=== PATIENT | female | born 1950 | race Caucasian/White ===

== ENCOUNTER 2020-09-19 07:39 | Outpatient (CLI) | payer MEDICARE, SELFPAY ==
--- NOTE | ~2020-09-19 | MM_ITS ---
EXAMINATION: MM screening [facility] BI w audra HISTORY: Screening mammogram TECHNIQUE: Craniocaudal and mediolateral oblique 3-D tomosynthesis images were obtained and synthetic 2-D images were generated. CAD analysis was submitted and interpreted. COMPARISON: 09/09/2019 bilateral digital screening mammogram 02/19/2019 diagnostic left digital mammogram and limited left breast ultrasound 08/18/2018 diagnostic bilateral digital mammogram and limited left breast ultrasound 08/15 2017 bilateral digital screening mammogram BREAST PARENCHYMAL COMPOSITION: ere is no evidence of suspicious mass, calcification, or architectura l distortion to suggest malignancy in either breast. There has been no suspicious interval change. IMPRESSION: 1. No mammographic evidence of malignancy. 2. Recommend routine screening mammography in one year. BI-RADS Category 1: Negative Reviewed, dictated and finalized at location A.
== END 2020-09-19 07:40 | disposition home or self-care (01) ==
LOC: ANHIMG 07:44
PROVIDERS: PCP Nurse Practitioner Adult Health; Visit Provider Obstetrics & Gynecology Gynecology
DX: Z12.31 Encounter for screening mammogram for malignant neoplasm of breast (principal)
CPT/HCPCS: 77063; 77067

== ENCOUNTER 2020-10-27 07:05 | Outpatient (NON) | payer MEDICARE, SELFPAY ==
[2020-10-27 18:53] LABS: SARS-CoV-2 RNA PCR Negative
== END 2020-10-27 07:06 ==
LOC: ANHCOVIDDT 07:06
PROVIDERS: Visit Provider Family Medicine
DX: Z20.828 Contact with and (suspected) exposure to other viral communicable diseases (principal); J06.9 Acute upper respiratory infection, unspecified
CPT/HCPCS: 87635; C9803; U0003

== ENCOUNTER 2021-02-02 07:59 | Outpatient (CLI) | payer MEDICARE, SELFPAY | END 2021-02-02 08:00 | LOC: ANHCOVIDVC 08:00 | PROVIDERS: PCP Family Medicine | DX: Z23 Encounter for immunization (principal) | CPT/HCPCS: 0001A; 91300 ==

== ENCOUNTER 2021-02-23 08:00 | Outpatient (CLI) | payer MEDICARE, SELFPAY | END 2021-02-23 08:01 | disposition home or self-care (01) | LOC: ANHCOVIDVC 08:00 | PROVIDERS: PCP Family Medicine | DX: Z23 Encounter for immunization (principal) | CPT/HCPCS: 0002A; 91300 ==

== ENCOUNTER 2021-11-03 10:07 | Outpatient (CLI) | payer MEDICARE, SELFPAY ==
--- NOTE | ~2021-11-03 | MM_ITS ---
EXAMINATION: MM screening [facility] BI w audra HISTORY: Screening mammogram TECHNIQUE: Craniocaudal and mediolateral oblique 3-D tomosynthesis images were obtained and synthetic 2-D images were generated. CAD analysis was submitted and interpreted. COMPARISON: 09/19/2020, 09/17/2019, 08/18/2018 BREAST PARENCHYMAL COMPOSITION: There are scattered areas of fibroglandular density. FINDINGS: There is no evidence of suspicious mass, calcification, or architectural distortion to sugg est malignancy in either breast. There has been no suspicious interval change. IMPRESSION: 1. No mammographic evidence of malignancy. 2. Recommend routine screening mammography in one year. BI-RADS Category 1: Negative Reviewed, dictated and finalized at location A. 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
--- NOTE | ~2021-11-03 | DEXA_ITS ---
Bone Density Report Name: MAYO DICKERSON Age: 71 Sex: Female Ethnicity: White Date of : 1950 Indication: osteopenia; postmenopausal Referring Provider: JESUS ANTONIO Study: Bone densitometry was performed. Exam Date: November 03, 2021 Accession number: [id number] Bone Density: Region BMD T-score Z-score Classification AP Spine (L1-L4) 0.947 -0.9 1.1 Normal Femoral Neck (Left) 0.635 -1.9 -0.2 Osteopenia Total Hip (Left) 0.785 -1.3 0.2 Osteopenia Total Hip Bilateral Avg 0.785 -1.3 0.2 Osteopenia Femoral Neck (Right) 0.624 -2.0 -0.3 Osteopenia Total Hip (Right) 0.783 -1.3 0.2 Osteopenia World Health Organization criteria for BMD impression classify patients as: Normal (T-score at or above -1.0), Osteopenia (T-score between -1.0 and -2.5), or Osteoporosis (T-score at or below -2.5). 10-year Fracture Risk(1): Major Osteoporotic Fracture 12% Hip Fracture 2.2% Reported Risk Factors: [place] (), Neck BMD=0.624, BMI=26.3 (1) FRAX(R) Version 3.08. Fracture probability calculated for an untreated patient. Fracture probability may be lower if the patient has received treatment. Previous Exams: Region Exam Age BMD T-score BMD Change BMD Change Date g/cm2 vs Baseline vs Previous AP Spine(L1-L4) 11/03/2021 71 0.947 -0.9 -0.054(-5.4%)# -0.076(-7.4%)* 08/13/2016 65 1.023 -0.2 0.023(2.3%)# 0.026(2.6%)# 07/28/2013 62 0.997 -0.5 -0.003(-0.3%)# -0.039(-3.8%)# 08/24/2010 59 1.037 -0.1 0.036(3.6%)* 0.036(3.6%)* 08/01/2008 57 1.001 -0.4 Total Hip(Left) 11/03/2021 71 0.785 -1.3 -0.065(-7.7%)# -0.012(-1.5%) 09/17/2019 69 0.797 -1.2 -0.053(-6.3%)# -0.021(-2.5%) 08/13/2016 65 0.817 -1.0 -0.033(-3.9%)# -0.024(-2.8%)# 07/28/2013 62 0.841 -0.8 -0.009(-1.1%)# 0.014(1.7%)# 08/24/2010 59 0.827 -0.9 -0.023(-2.7%) -0.023(-2.7%) 08/01/2008 57 0.850 -0.8 Total Hip(Right) 11/03/2021 71 0.783 -1.3 -0.101(-11.4%) -0.022(-2.8%) 09/17/2019 69 0.806 -1.1 -0.079(-8.9%)# -0.026(-3.1%) 08/13/2016 65 0.832 -0.9 -0.053(-6.0%)# -0.015(-1.8%)# 07/28/2013 62 0.846 -0.8 -0.038(-4.3%)# -0.087(-9.3%)# 08/24/2010 59 0.933 -0.1 0.049(5.5%)* 0.049(5.5%)* 08/01/2008 57 0.885 -0.5 *Denotes significance at 95% confidence level, LSC for AP Spine = 0.022 g/cm2, LSC for Total Hip = 0.027 g/cm2 Clinical Information Provided by Patient: Has used the following medications: Calcium Patient maximum height was 59
== END 2021-11-03 10:08 | disposition home or self-care (01) ==
LOC: ANHIMG 10:11
PROVIDERS: PCP Family Medicine; Visit Provider Obstetrics & Gynecology Gynecology
DX: Z12.31 Encounter for screening mammogram for malignant neoplasm of breast (principal); Z78.0 Asymptomatic menopausal state; M85.852 Other specified disorders of bone density and structure, left thigh; M85.851 Other specified disorders of bone density and structure, right thigh
CPT/HCPCS: 77063; 77067; 77080

== ENCOUNTER → 2022-12-30 15:35 | Outpatient (CLI) | payer MEDICARE, SELFPAY ==
--- NOTE | ~2022-12-30 | MM_ITS ---
EXAMINATION: MM screening [facility] BI w audra HISTORY: Screening mammogram TECHNIQUE: Craniocaudal and mediolateral oblique 3-D tomosynthesis images were obtained and synthetic 2-D images were generated. CAD analysis was submitted and interpreted. COMPARISON: 11/03/2021, 09/19/2020, 09/17/2019 bilateral screening mammogram examinations BREAST PARENCHYMAL COMPOSITION: There are scattered areas of fibroglandular density. FINDINGS: There is no evidence of suspicious mass, calcification, or architectural distortion to sugg est malignancy in either breast. There has been no suspicious interval change. IMPRESSION: 1. No mammographic evidence of malignancy. 2. Recommend routine screening mammography in one year. BI-RADS Category 1: Negative Reviewed, dictated and finalized at location A. 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
== END ==
PROVIDERS: PCP Obstetrics & Gynecology Gynecology; Visit Provider Obstetrics & Gynecology Gynecology
DX: Z12.31 Encounter for screening mammogram for malignant neoplasm of breast (principal)
CPT/HCPCS: 77063; 77067

== ENCOUNTER 2023-06-24 10:37 | Emergency (ER) | payer MEDICARE, SELFPAY ==
[2023-06-24 10:49] VITALS: BP 168/92; PULSE 78; RESP 18; TEMP 36.6; O2SAT 97
--- NOTE | 2023-06-24 11:46 | ED.ALLEREA ---
HPI - Allergic Reaction General Chief complaint: Allergic Reaction Stated complaint: Throat swelling Time Seen by Provider: 06/24/23 10:46 History of Present Illness HPI narrative: 72-year-old female present emergency department for evaluation of a suspected allergic reaction. Patient states she does have history of allergic reaction to celery and for peanuts. Patient states she has had pickles previously without any issues. This morning the patient had a apical that was made by a neighbor. Patient states afterward she began having some swelling at the back of her tongue. Patient did take 3 Benadryl at home but she was home alone and became concerned. Upon arrival to the ED patient states she does feel that her symptoms are improving. Related Data Home Medications Medication Instructions Recorded Confirmed ergocalciferol (vitamin D2) 1,250 1,250 mcg PO WEEKLY 02/09/23 02/10/23 mcg (50,000 unit) capsule Allergies Allergy/AdvReac Type Severity Reaction Status Date / Time celery Allergy Unknown Hives Verified 06/24/23 10:47 peanut Allergy Unknown THROAT Verified 06/24/23 10:47 SWELLING CLAMS Allergy Unknown Hives Uncoded 02/09/23 13:05 Review of Systems Review of Systems: All systems reviewed & are unremarkable except as noted in HPI and below PMFSH Past Medical History Medical History (Updated 06/24/23 @ 12:19 by aTvon Fernandes MD) Allergic rhinitis Generalized anxiety disorder GERD (gastroesophageal reflux disease) Heart murmur Hyperlipidemia Insomnia Osteopenia Surgical History Surgical History (Updated 02/10/23 @ 06:28 by YEISON Stover) History of Mohs micrographic surgery for skin cancer 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, left mid cheek History of tubal ligation Social History Social History (Updated 02/09/23 @ 13:12 by Cathy Salguero MA) Smoking status: Former smoker Alcohol intake: current Alcohol use details: occasionally Substance use: never Substance use type: does not use Lack of Transportation: No Lack of Food: Never True Current Housing: I Have Housing Concerned About Future Housing: No Difficulty Paying Gas/Electric Bills: No Difficulty Paying for Meds: No Currently Unemployed: YES Education: Trade/Vocational Certificate Difficulty w/ Childcare or Family Care: No Living arrangements: with family Occupation/Education: retired Gender identity (if verbalized by the patient): Female Sexual Orientation (if Verbalized by the Patient): Straight or Heterosexual Exam Narrative: APPEARANCE: Well appearing, no pain, no distress, well-nourished. HEAD: normocephalic, atraumatic. EYES: PERRLA/EOMI, conjunctivae clear. NOSE: Normal no drainage EARS:TMS clear with good light reflex. THROAT: Pharynx clear, no exudate. NECK: Supple. No adenopathy, no masses. RESPIRATORY: Airway patent, respirations nonlabored. Clear to auscultation bilaterally, no rales, rhonchi, wheezing. CARDIOVASCULAR: Regular rate and rhythm without murmurs rubs or gallops. ABDOMINAL: Soft, nontender, nondistended, normal bowel sounds MUSCULOSKELETAL: Moves all extremities. Strength/ROM intact, No edema, No calf tenderness. NEURO: Alert. Cranial nerves II through XII intact. Grossly intact SKIN: Warm, dry. Normal Color Course Course Emergency Course: 72-year-old female presented to ED for evaluation of allergic reaction. Patient states her symptoms feel improved. Patient denies any shortness of breath does denies any difficulty breathing or swallowing. Patient had no stridor on exam and appears to be in no distress. Patient prefers not to do steroids at this time. Because the symptoms improved with Benadryl patient will be observed and will be advised to take Benadryl as needed as outpatient. On reevaluation patient continues to have no complaints. Patient was encouraged of close follow-up with her primary care physici
== END 2023-06-24 12:42 | disposition home or self-care (01) ==
PROVIDERS: Emergency Provider Emergency Medicine; PCP Family Medicine
DX: T78.40XA Allergy, unspecified, initial encounter (principal); E78.5 Hyperlipidemia, unspecified; K21.9 Gastro-esophageal reflux disease without esophagitis; M85.80 Other specified disorders of bone density and structure, unspecified site; Z87.891 Personal history of nicotine dependence
CPT/HCPCS: 99281

== ENCOUNTER 2023-11-23 14:49 | Outpatient (CLI) | payer MEDICARE, SELFPAY ==
--- NOTE | ~2023-11-23 | DEXA_ITS ---
Bone Density Report Name: MAYO DICKERSON Age: 73 Sex: Female Ethnicity: White Date of : 1950 Indication: osteopenia; height loss; postmenopausal Referring Provider: JESUS ANTONIO Study: Bone densitometry was performed. Exam Date: November 23, 2023 Accession number: [id number] Bone Density: Region BMD T-score Z-score Classification AP Spine(L1-L4) 0.941 -1.0 1.2 Normal Femoral Neck (Left) 0.562 -2.6 -0.7 Osteoporosis Total Hip (Left) 0.743 -1.6 -0.1 Osteopenia Femoral Neck (Right) 0.582 -2.4 -0.5 Osteopenia Total Hip (Right) 0.778 -1.3 0.2 Osteopenia Total Hip Mean 0.760 -1.5 0.1 Osteopenia World Health Organization criteria for BMD impression classify patients as: Normal (T-score at or above -1.0), Osteopenia (T-score between -1.0 and -2.5), or Osteoporosis (T-score at or below -2.5). 10-year Fracture Risk: FRAX not reported because: Some T-score for Spine Total or Hip Total or Femoral Neck at or below -2.5 Previous Exams: Region Exam Age BMD T-score BMD Change BMD Change Date g/cm2 vs Baseline vs Previous AP Spine (L1-L4) 11/23/2023 73 0.941 -1.0 -0.057 (-5.7%) -0.006 (-0.7%) 11/03/2021 71 0.947 -0.9 -0.050 (-5.1%) -0.076 (-7.4%) 08/13/2016 65 1.023 -0.2 0.026 (2.6%)# 0.026 (2.6%)# 07/28/2013 62 0.997 -0.5 Total Hip(Left) 11/23/2023 73 0.743 -1.6 -0.098 (-11.7% -0.042 (-5.4%) 11/03/2021 71 0.785 -1.3 -0.056 (-6.7%) -0.012 (-1.5%) 09/17/2019 69 0.797 -1.2 -0.044 (-5.3%) -0.021 (-2.5%) 08/13/2016 65 0.817 -1.0 -0.024 (-2.8%) -0.024 (-2.8%) 07/28/2013 62 0.841 -0.8 Total Hip(Right) 11/23/2023 73 0.778 -1.3 -0.068 (-8.0%) -0.005 (-0.7%) 11/03/2021 71 0.783 -1.3 -0.063 (-7.4%) -0.022 (-2.8%) 09/17/2019 69 0.806 -1.1 -0.041 (-4.8%) -0.026 (-3.1%) 08/13/2016 65 0.832 -0.9 -0.015 (-1.8%) -0.015 (-1.8%) 07/28/2013 62 0.846 -0.8 *Denotes significance at 95% confidence level, LSC for AP Spine = 0.022 g/cm2, LSC for Total Hip = 0.027 g/cm2 # Denotes dissimilar scan types or analysis methods Clinical Information Provided by Patient: Has used the following medications: Vitamin D, Calcium Patient maximum height was 59.5 Menopause Age: 54 Onset of menses at age 15 Number of children 2 Impression: The patient has osteoporosis, based on the Left Femoral Neck T-score. The BMD for the Total Hip(Left) decreased, changing by -5.4% since the last DXA
== END 2023-11-23 14:50 | disposition home or self-care (01) ==
LOC: ANHIMG 14:53
PROVIDERS: PCP Family Medicine; Visit Provider Obstetrics & Gynecology Gynecology
DX: M81.0 Age-related osteoporosis without current pathological fracture (principal); Z78.0 Asymptomatic menopausal state
CPT/HCPCS: 77080

== ENCOUNTER 2023-12-30 13:47 | Outpatient (CLI) | payer MEDICARE, SELFPAY ==
--- NOTE | ~2023-12-30 | MM_ITS ---
EXAMINATION: MM screening [facility] BI w audra HISTORY: Screening mammogram TECHNIQUE: Craniocaudal and mediolateral oblique 3-D tomosynthesis images were obtained and synthetic 2-D images were generated. CAD analysis was submitted and interpreted. COMPARISON: December 30, 2022, November 03, 2021 bilateral screening mammogram examinations BREAST PARENCHYMAL COMPOSITION: There are scattered areas of fibroglandular density. FINDINGS: There is no evidence of suspicious mass, calcification, or architectural distortion to sugg est malignancy in either breast. There has been no suspicious interval change. IMPRESSION: 1. No mammographic evidence of malignancy. 2. Recommend routine screening mammography in one year. BI-RADS Category 1: Negative Reviewed, dictated and finalized at location A. 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
== END 2023-12-30 13:48 | disposition home or self-care (01) ==
LOC: ANHIMG 13:51
PROVIDERS: PCP Family Medicine; Visit Provider Obstetrics & Gynecology Gynecology
DX: Z12.31 Encounter for screening mammogram for malignant neoplasm of breast (principal)
CPT/HCPCS: 77063; 77067

== ENCOUNTER 2024-05-14 09:36 | Emergency (ER) | payer MEDICARE, SELFPAY ==
[2024-05-14 09:54] VITALS: BP 146/78; PULSE 88; RESP 16; TEMP 36.8; O2SAT 99
--- NOTE | 2024-05-14 09:54 | ED.SKABFB ---
HPI - Skin/Abscess/Foreign Bdy General Chief complaint: Skin/Abscess/Foreign Body Stated complaint: rash Time Seen by Provider: 05/14/24 09:54 Source: patient, RN notes reviewed and old records reviewed Mode of arrival: ambulatory Limitations: no limitations History of Present Illness HPI narrative: 73-year-old female to [facility] for complaint of rash to bilateral sides, right wrist and back for 1 week. Patient states that she has noticed some redness and irritation to right temporal area the past 3 days. Patient has attempted to treat at home with [id number] creams and covering the areas on her sides with gauze overnight. Patient endorses that rash is continuing to spread and c/o itching. Patient states that she has been in her garden and had been working in her garden prior to rash appearing. Patient denies any recent illness, fever, rash, cough, shortness of breath, headache, body aches, pain, visual changes. Patient does state that her right eye has been irritated and watering . Respirations even and nonlabored. Patient in no acute distress. Related Data Home Medications Medication Instructions Recorded Confirmed ergocalciferol (vitamin D2) 1,250 1,250 mcg PO WEEKLY 02/09/23 05/14/24 mcg (50,000 unit) capsule Allergies Allergy/AdvReac Type Severity Reaction Status Date / Time peanut Allergy Severe THROAT Verified 05/14/24 09:44 SWELLING celery AdvReac Mild Hives Verified 05/14/24 09:44 CLAMS AdvReac Mild Hives Uncoded 05/14/24 09:44 Review of Systems Review of Systems: All systems reviewed & are unremarkable except as noted in HPI and below Constitutional: Constitutional: Reports as per HPI, Denies fatigue, Denies fever(s) and Denies headache(s) Eyes: Eyes: Reports as per HPI, Denies change in vision, Reports eye discharge ( right), Reports irritation ( right) and Denies photophobia ENT: Reports system reviewed and no additional complaints, except as documented Cardiovascular: Cardiovascular: Reports no additional cardiovascular complaints, Denies chest pain and Denies dyspnea Respiratory: Respiratory: Reports no additional respiratory complaints, Denies cough and Denies dyspnea Musculoskeletal: Musculoskeletal: Reports no additional musculoskeletal complaints Integumentary/Breasts: Skin/Breast: Reports as per HPI and Reports rash Comments: right lower lateral trunk; left lower lateral trunk; right volar wrist; right face at temporal area; left middle back Neurologic: Reports system reviewed and no additional complaints, except as documented Psychiatric: Psychiatric: Reports no additional psychiatric complaints PMFSH Past Medical History Medical History Allergic rhinitis Generalized anxiety disorder GERD (gastroesophageal reflux disease) Hyperlipidemia Insomnia Osteopenia Surgical History Surgical History History of Mohs micrographic surgery for skin cancer 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, left mid cheek History of tubal ligation Family History Family History Mother Heart disease Diabetes mellitus Social History Social History Smoking status: Former smoker Alcohol intake: current Alcohol use details: occasionally Substance use: never Substance use type: does not use Do You Feel Safe in your Home?: Yes Lack of Transportation: No Lack of Food: Never True Current Housing: I Have Housing Concerned About Future Housing: No Difficulty Paying Gas/Electric Bills: No Difficulty Paying for Meds: No Currently Unemployed: YES Education: Trade/Vocational Certificate Difficulty w/ Childcare or Family Care: No Living arrangements: with family Occupation/Edu
== END 2024-05-14 10:30 | disposition home or self-care (01) ==
PROVIDERS: Emergency Provider Nurse Practitioner Family; PCP Family Medicine
DX: L25.9 Unspecified contact dermatitis, unspecified cause (principal); H10.9 Unspecified conjunctivitis; Z87.891 Personal history of nicotine dependence; K21.9 Gastro-esophageal reflux disease without esophagitis; E78.5 Hyperlipidemia, unspecified; M85.80 Other specified disorders of bone density and structure, unspecified site
CPT/HCPCS: 99213; G0463

== ENCOUNTER 2024-08-01 18:10 | Emergency (ER) | payer MEDICARE, SELFPAY ==
--- NOTE | ~2024-08-01 | XR_ITS ---
XR chest 2V Ordering provider: Chano Ayala MD History: 73 years Female with . chest pain . Comparison: January 09, 2013 FINDINGS: MEDIASTINUM: The cardiac silhouette is not enlarged. LUNGS: No infiltrates, effusions or pneumothorax. OTHER: No free air under the diaphragm. Degenerative changes of the spine. IMPRESSION: No acute cardiopulmonary pathology. Reviewed, dictated and finalized at location A.
[2024-08-01 18:12] VITALS: BP 160/64; PULSE 81; RESP 17; TEMP 36.8; O2SAT 100
--- NOTE | 2024-08-01 18:12 | ECG_ITS ---
Test Date: 2024-08-01 18:16:24 Measurements Intervals [place] Rate: 75 P: 48 MT: 160 QRS: -23 QRSD: 91 T: 16 QT: 362 QTc: 406 Interpretive Statements SINUS RHYTHM POSSIBLE LEFT ATRIAL ENLARGEMENT VOLTAGE CRITERIA FOR LVH BORDERLINE R WAVE PROGRESSION, ANTERIOR LEADS BASELINE ARTIFACT- I, III, AVR, AVL, AVF BORDERLINE ECG No previous ECG available for comparison Electronically Signed On 08-01-2024 19:21:00 CDT by Anthony Levy D.O.
[2024-08-01 18:34] LABS: Basophils Absolute Auto 0.1 K/mm3 (0.0-0.1); Basophils Percent Auto 0.9 % (0.2-1.2); Eosinophils Absolute Auto 0.4 K/mm3 (0-0.3); Eosinophils Percent Auto 4.3 % (0-4.4); Hematocrit 39.6 % (37.0-47.0); Hemoglobin 13.6 g/dL (12.0-15.0); Immature Granulocyte Absolute 0.01 K/mm3 (0.00-0.031); Immature Granulocyte Percent A 0.1 % (0-0.5); Lymphocytes Absolute Auto 2.79 K/mm3 (0.9-3.2); Lymphocytes Percent Auto 32.7 % (18.3-44.2); Mean Corpuscular HGB Conc 34.3 g/dl (32-36); Mean Corpuscular Hemoglobin 30.3 pg (26-34); Mean Corpuscular Volume 88.2 fl (80-100); Mean Platelet Volume 8.9 fl (7.4-10.4); Monocytes Absolute Auto 0.7 K/mm3 (0.1-0.6); Monocytes Percent Auto 8.3 % (2.6-8.5); Neutrophils Absolute Auto 4.6 K/mm3 (1.3-6.7); Neutrophils Percent Auto 53.7 % (45.5-73.1); Platelet Count Result 341 k/mm3 (150-375); Red Blood Count 4.49 M/mm3 (4.2-5.4); Red Cell Distribution Width 12.6 % (11.5-14.5); White Blood Count 8.5 K/mm3 (4.5-10.0)
[2024-08-01 18:47] LABS: Alanine Aminotransferase 20 U/L (6-35); Albumin Level 4.6 g/dL (3.5-5.1); Alkaline Phosphatase 65 U/L (38-126); Anion Gap 10 mmol/L (4-12); Aspartate Amino Transferase 32 U/L (14-36); Bilirubin,Total 0.4 mg/dL (0.2-1.3); Blood Urea Nitrogen 18 mg/dL (7-17); Calcium 9.4 mg/dL (8.4-10.2); Carbon Dioxide 26 mmol/L (22-30); Chloride 102 mmol/L (98-107); Estimated CRCL calculation 40 ml/min; Estimated Glomerular Filt Rate > 60; Glucose 102 mg/dL (65-110); INR 0.8; Lipase 86 U/L (23-300); Potassium 4.1 mmol/L (3.4-5.0); Sodium 138 mmol/L (137-145)
[2024-08-01 18:48] LABS: Partial Thromboplastin Time 27.4 Seconds (22.3-36.8)
[2024-08-01 18:57] LABS: Troponin I < 0.012 ng/mL (0.000-0.034)
[2024-08-01 19:43] VITALS: PULSE 69
[2024-08-01 19:44] VITALS: O2SAT 98
[2024-08-01 21:00] VITALS: BP 138/74; PULSE 66; RESP 15; O2SAT 98
--- NOTE | 2024-08-01 21:08 | ED.GENADULT ---
HPI - General Adult General Chief complaint: Chest Pain Stated complaint: chest pain Time Seen by Provider: 08/01/24 19:45 History of Present Illness HPI narrative: Patient is a 73-year-old female who presents emergency department with chief complaint of intermittent discomfort on her left chest and upper back for the last 3 days the patient reports that she has had multiple episodes of uncomfortable feeling the patient does report that she has had a little bit of a rash present on her back but does report that she has had shingles vaccine. Patient reports no prior history of cardiac disease reports that she has been little bit anxious slightly as she has an upcoming trip. Patient reports that she has had a stress test in the past was negative Related Data Home Medications Medication Instructions Recorded Confirmed ergocalciferol (vitamin D2) 1,250 1,250 mcg PO WEEKLY 02/09/23 05/14/24 mcg (50,000 unit) capsule Allergies Allergy/AdvReac Type Severity Reaction Status Date / Time peanut Allergy Severe THROAT Verified 05/14/24 09:44 SWELLING celery AdvReac Mild Hives Verified 05/14/24 09:44 CLAMS AdvReac Mild Hives Uncoded 05/14/24 09:44 Review of Systems Review of Systems: A 10 system review of systems was completed on the patient and is negative except for what is stated in the HPI. Nursing and ancillary documentation was reviewed. 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, left mid cheek History of tubal ligation Family History Family History Mother Heart disease Diabetes mellitus Social History Social History Smoking status: Former smoker Alcohol intake: current Alcohol use details: occasionally Substance use: never Substance use type: does not use Do You Feel Safe in your Home?: Yes Lack of Transportation: No Lack of Food: Never True Current Housing: I Have Housing Concerned About Future Housing: No Difficulty Paying Gas/Electric Bills: No Difficulty Paying for Meds: No Currently Unemployed: YES Education: Trade/Vocational Certificate Difficulty w/ Childcare or Family Care: No Living arrangements: with family Occupation/Education: retired Gender identity (if verbalized by the patient): Female Sexual Orientation (if Verbalized by the Patient): Straight or Heterosexual Exam Narrative: GENERAL: Well-appearing, well-nourished, and in no acute distress. HEAD: Normocephalic, atraumatic. EYES: PERRLA and EOMI. ENT: Nares clear, no rhinorrhea or epistaxis. Mucous membranes moist. NECK: Supple. CHEST: Clear to auscultation. No respiratory distress. HEART: Regular rate and rhythm. No murmur heard. Normal peripheral pulses. ABDOMEN: Soft, nontender, nondistended, normal active bowel sounds. EXTREMITIES: Normal range of motion. No edema. SKIN: Warm, dry, no rash. NEURO: No focal deficits. Alert and oriented x3. PSYCH: Normal mood and affect. Course Vital Signs Vital signs: Vital Signs Temperature 36.8 C 08/01/24 18:12 Pulse Rate 81 08/01/24 18:12 Respiratory Rate 17 08/01/24 18:12 Blood Pressure 160/64 H 08/01/24 18:12 Pulse Oximetry 100 08/01/24 18:12 Oxygen Delivery Room Air 08/01/24 18:12 Temperature 36.8 C 08/01/24 18:12 Pulse Rate 66 08/01/24 21:00 Respiratory Rate 15 08/01/24 21:00 Blood Pressure 138/74 08/01/24 21:00 Pulse Oximetry 98 08/01/24 21:00 Oxyg
--- NOTE | 2024-08-01 21:23 | ECG_ITS ---
Test Date: 2024-08-01 21:01:26 Measurements Intervals [place] Rate: 64 P: 50 IN: 167 QRS: -11 QRSD: 91 T: 28 QT: 400 QTc: 415 Interpretive Statements SINUS RHYTHM POSSIBLE LEFT ATRIAL ENLARGEMENT DELAYED PRECORDIAL R/S TRANSITION LEFT VENTRICULAR HYPERTROPHY BORDERLINE ECG Compared to ECG 08/01/2024 18:16:24 No significant changes Electronically Signed On 08-02-2024 05:34:34 CDT by Anthony Levy D.O.
[2024-08-01 22:01] LABS: Troponin I < 0.012 ng/mL (0.000-0.034)
== END 2024-08-01 22:34 | disposition home or self-care (01) ==
PROVIDERS: Emergency Medicine; Emergency Provider Emergency Medicine; PCP Family Medicine
DX: R07.89 Other chest pain (principal); F41.1 Generalized anxiety disorder; K21.9 Gastro-esophageal reflux disease without esophagitis; E78.5 Hyperlipidemia, unspecified; Z87.891 Personal history of nicotine dependence
CPT/HCPCS: 36415; 71046; 80053; 83690; 84484; 85025; 85610; 85730; 93005; 99284

== ENCOUNTER 2024-12-26 08:36 | Outpatient (CLI) | payer MEDICARE, SELFPAY ==
--- OUTSIDE RECORDS SUMMARY | 2024-12-26 08:44 | XMS_ITS | Continuity of Care Document ---
Author Organization [facility] Address [address] [place] [address] Phone Care Team Providers Care Digital Marketing Executive Name Role Phone Odell Nieto MD Unavailable Unavailable Allergies, Adverse Reactions, Alerts Substance Reaction Status Criticality cyclobenzaprine Active No Informati on Medications Medication Instructions Dosage Effective Dates (start - stop) Status Comments BENADRYL (unknown strength) Not Available - Active PREDNISONE (unknown strength) Not Available - Active NITROSTAT (unknown strength) Not Available - Active ALPRAZOLAM (unknown strength) Not Available - Active ASPIRIN (unknown strength) Not Available - Active VITAMIN D3 (unknown strength) Not Available - Active CALCIUM 500-VIT D3 (unknown strength) Not Available - Active MULTIVITAMINS (unknown strength) Not Available - Active ESTRADIOL (unknown strength) Not Available - Active MEDROXYPROGESTERONE ACETATE (unknown strength) Not Available - Active Procedures Procedure Date OFFICE/OUTPATIENT VISIT NEW Advance Directives Directive Yes / No Effective Date File Name No Information Encounters Encounter Description Practice Location Reason(s) For Visit Diagnoses Date Provider Providers Copied on Encounter OFFICE/OUTPAT IENT VISIT NEW [facility] , [address], [place], [address], [place] tel:[phone] [facility] knee pain (chief complaint) knee chondromalacia of patella [address]. [address] [place], [place], [id number] . tel:[phone] Referring Provider: Lynne Moses, [address], [place], [address] . tel:[phone] Family History Family Member Type Diagnosis Age At Onset Mother Problem (finding) Maternal history of rebecca betes mellitus Mother Problem (finding) Heart disease Payers Payer name Insurance type Covered libertarian ID Authorromaina adela(s) No Information Social History Type Description Quantity Date Captured Comments Alcohol Use Details Caffeine Use Details Unknown Tobacco Use Status Never smoked tobacco 2013 Smoking Status Never smoker Non-Smoking Tobacco Use Details : No Details Available : No Details Available Sex Female Vital Signs Date / Time: Height Weight BMI Pulse Rate Blood Pressure Temperature Respiratory Rate Body Surface Area Head Circumference Head Circ. Percentile Wt./John. Percentile BMI percentile Pulse Ox Inhaled Ox 1:42 PM 60.00 in 58.967 kg (130.00 lbs) 25.3 9 kg/m eter (2) 126/76 mm[Hg] Chief Complaint And Reason For Visit From encounter dated '11/11/2014 13:30'. R knee pain (chief complaint) Reason For Referral Reason For Referral No Information History Of Present Illness Encounter Date Complaint History Of Prese nt Illness R knee pain Functional Status Date Functional Assessmen t No Information Instructions Date Instruction Additional Infor mation No Information Assessments Type Assessment Date assessment knee chondromalacia of patella D Patient Care Teams Name Effective Dates (start - stop) Status Members No Information
== END 2024-12-26 08:37 | disposition home or self-care (01) ==
LOC: ANHAUDIO 08:37
PROVIDERS: PCP Family Medicine
DX: H90.3 Sensorineural hearing loss, bilateral (principal); H93.13 Tinnitus, bilateral; H74.8X3 Other specified disorders of middle ear and mastoid, bilateral
CPT/HCPCS: 92557; 92567

== ENCOUNTER 2025-01-21 13:53 | Outpatient (CLI) | payer MEDICARE, SELFPAY | END 2025-01-21 13:54 | disposition home or self-care (01) | LOC: ANHIMG 13:55 | PROVIDERS: PCP Family Medicine; Visit Provider Obstetrics & Gynecology Gynecology | DX: Z12.31 Encounter for screening mammogram for malignant neoplasm of breast (principal) | CPT/HCPCS: 77063; 77067 ==

== ENCOUNTER 2025-04-17 09:00 | Outpatient (RCR) | payer MEDICARE, SELFPAY | END 2025-04-17 23:59 | disposition home or self-care (01) | LOC: ANHAUDIO 09:00 | PROVIDERS: PCP Family Medicine; Visit Provider Family Medicine | DX: Z46.1 Encounter for fitting and adjustment of hearing aid (principal) | CPT/HCPCS: 99199; V5261 ==

== ENCOUNTER 2025-05-08 08:10 | Outpatient (CLI) | payer MEDICARE, SELFPAY ==
--- NOTE | ~2025-05-08 | XR_ITS ---
Lumbosacral Spine: AP, oblique, and lateral views Clinical History: Pain Findings: The normal lordotic curve is maintained. No acute fracture evident. There is 6 mm anterolis thesis of L4 over L5. There is 11 mm anterolisthesis of L5 over S1. There is severe facet arthropathy throughout the lumbar spine. There is mild degenerative disc changes in the lumbar spine. The sacroi liac joints are normally outlined. Impression: 6 mm anterolisthesis of L4 over L5. 11 mm anterolisthesis of L5 over S1. Severe facet arthropathy throughout the lumbar spine. Mild degenerative disc change. Reviewed, dictated and finalized at location . Impression: 6 mm anterolisthesis of L4 over L5. 11 mm anterolisthesis of L5 over S1. Severe facet arthropathy throughout the lumbar spine. Mild degenerative disc ch miguelito.
--- NOTE | ~2025-05-08 | XR_ITS ---
XR hip LT 2V w AP pelvis Ordering provider: Elinor Castillo PA-C History: . R10.32 - Left lower quadrant pain . Comparison: None. FINDINGS: BONES: No acute fracture or dislocation. HIP JOINT SPACES: Mild bilateral osteoarthritic changes. SACROILIAC JOINT SPACES/LUMBAR SPINE: The sacroiliac joint spaces are normal. Mild degenerative hernandez es of the visualized lower lumbar spine. PUBIC SYMPHYSIS: Pubic symphysitis. SOFT TISSUES: Normal. IMPRESSION: No acute osseous abnormality pelvis and left hip. Mild bilateral hip osteoarthritic changes. Reviewed, dictated and finalized at location A.
--- OUTSIDE RECORDS SUMMARY | 2025-05-08 08:17 | XMS_ITS | Continuity of Care Document ---
Author Organization [facility] Address [address] [place] [address] Phone Care Team Providers Care Contact Person Name Role Phone Odell Nieto MD Unavailable Unavailable Allergies, Adverse Reactions, Alerts Substance Reaction Status Criticality cyclobenzaprine Active No Informati on Medications Medication Instructions Dosage Effective Dates (start - stop) Status Comments MEDROXYPROGESTERONE ACETATE (unknown strength) Not Available - Active ESTRADIOL (unknown strength) Not Available - Active MULTIVITAMINS (unknown strength) Not Available - Active CALCIUM 500-VIT D3 (unknown strength) Not Available - Active VITAMIN D3 (unknown strength) Not Available - Active ASPIRIN (unknown strength) Not Available - Active ALPRAZOLAM (unknown strength) Not Available - Active NITROSTAT (unknown strength) Not Available - Active PREDNISONE (unknown strength) Not Available - Active BENADRYL (unknown strength) Not Available - Active Procedures Procedure Date OFFICE/OUTPATIENT VISIT NEW Advance Directives Directive Yes / No Effective Date File Name No Information Encounters Encounter Description Practice Location Reason(s) For Visit Diagnoses Date Provider Providers Copied on Encounter OFFICE/OUTPAT IENT VISIT NEW [facility] , [address] [facility] [address], [place], [address], [place] tel:[phone] [facility] knee pain (chief complaint) knee chondromalacia of patella [address]. [address] [place], [place], [id number] . tel:[phone] Referring Provider: Lynne Moses, [address], [place], [address] . tel:[phone] Family History Family Member Type Diagnosis Age At Onset Mother Problem (finding) Maternal history of rebecca betes mellitus Mother Problem (finding) Heart disease Payers Payer name Insurance type Covered constitution party ID Authorromaina adela(s) No Information Social History [...]
== END 2025-05-08 08:11 | disposition home or self-care (01) ==
PROVIDERS: PCP Family Medicine
DX: M43.16 Spondylolisthesis, lumbar region (principal); M43.17 Spondylolisthesis, lumbosacral region; M16.0 Bilateral primary osteoarthritis of hip
CPT/HCPCS: 72110; 73502

== ENCOUNTER 2025-09-14 17:34 | Observation (INO) | payer MEDICARE, SELFPAY ==
[2025-09-14] VITALS (10 sets, daily range): BP systolic 124–179; BP diastolic 61–76; PULSE 62–74; RESP 14–18; TEMP 36.4–36.7; O2SAT 96–99; BMI 24.5
--- NOTE | ~2025-09-14 | XR_ITS ---
EXAMINATION: XR chest 2V, 09/14/2025 17:53 CDT HISTORY: syncope COMPARISON: No comparisons available. Technique: 2 views obtained. Findings: The lungs are clear, no effusion. No pneumothorax. Heart is normal size. Mediastinal and hilar contours are within normal limits. Bony thorax no acute abnormality. Impression: No acute cardiopulmonary abnormality. Reviewed, dictated and finalized at location P. Impression: No acute cardiopulmonary abnormality.
--- NOTE | ~2025-09-14 | CT_ITS ---
EXAMINATION: CT brain wo selene, 09/14/2025 17:40 CDT HISTORY: syncope x2 COMPARISON: No comparisons available. Technique: Axial images obtained of the brain without contrast. One or more of the following dose reduction techniques were used: automated exposure control, adjustment of the mA and/or kV according to patient size, use of iterative reconstruction technique. Findings: No acute infarct or parenchymal hemorrhage. No abnormal mass or mass effect. No midline shift. No extra-axial fluid collections. No hydrocephalus. Mastoid air cells unremarkable. Sinuses and orbits unremarkable. No acute fracture. No significant facial or scalp soft tissue swelling evident. No radiopaque foreign body is seen. Impression: 1.No acute intracranial abnormality. Reviewed, dictated and finalized at location P. Impression: 1.No acute intracranial abnormality.
--- NOTE | ~2025-09-14 | MR_ITS ---
EXAMINATION: MR brain/brain stem wo/w con COMPARISON: CTA 09/14/2025 HISTORY: multiple syncopal episodes TECHNIQUE: Multiplanar multisequence images obtained of the brain without and with intravenous contrast, Prohance 17cc injected IV. FINDINGS: Cerebellar tonsils are normal in location. No abnormal signal in the clivus of the cervical spine. Pituitary does not appear enlarged No acute infarct or hemorrhage There are scattered areas of abnormal signal within the subcortical white matter which are too small to characterize, dominant focus left frontal subcortical white matter 6 x 6 mm Appropriate flow voids are maintained. No midline shift or mass effect. No extra-axial fluid collections. Appropriate flow voids are maintained Nonspecific right mastoid effusion. Left mastoid air cells, sinuses and orbits are unremarkable No abnormal enhancement is identified IMPRESSION: 1. Probable scattered areas of chronic periventricular ischemic change. Other demyelinating etiologies however are not excluded. Six-month follow-up is recommended to assess Reviewed, dictated and finalized at location P. IMPRESSION: 1. Probable scattered areas of chronic periventricular ischemic change. Other d emyelinating etiologies however are not excluded. Six-month follow-up is recomm ended to assess
--- NOTE | ~2025-09-14 | CT_ITS ---
EXAMINATION: CTA brain carotid, 09/14/2025 19:14 CDT HISTORY: syncope x2 COMPARISON: No comparisons available. TECHNIQUE: CTA scan with 3D Reconstructions of the brain and neck was performed with contrast Isovue 300, 92cc injected IV. One or more of the following dose reduction techniques were used: automated exposure control, adjustment of the mA and/or kV according to patient size, use of iterative reconstruction technique. Unless otherwise stated, incidental findings do not require dedicated follow up imaging FINDINGS: CTA brain: Visualized brain parenchyma and optic globes appear unremarkable. Basilar artery unremarkable. Right posterior cerebral artery unremarkable. Left posterior cerebral artery Unremarkable. The right petrous and cavernous ICA segments are unremarkable. The right M1, M2 segments and their branches are unremarkable. The right A1 and A2 segments are unremarkable. The left petrous and cavernous ICA segments are unremarkable. The left M1, M2 segments and their branches are unremarkable. The left A1 and A2 segments are unremarkable. CTA NECK: No asymmetry of the airway or thickening of the prevertebral space. Mild prominence of the uvula. Visualized parotid and submandibular glands unremarkable. Subcentimeter thyroid nodules. No lymphadenopathy. The lung apices demonstrate chronic changes. No sclerotic or lytic lesions identified. No significant sinusitis Cervical segments of the vertebral arteries are unremarkable Right CCA unremarkable. Right ICA unremarkable Left CCA unremarkable. Left ICA unremarkable IMPRESSION: 1. No critical stenosis, aneurysm or occlusion identified. Reviewed, dictated and finalized at location P.
--- NOTE | 2025-09-14 17:40 | ECG_ITS ---
Test Date: 2025-09-14 17:38:17 Measurements Intervals [place] Rate: 63 P: 50 NH: 173 QRS: -3 QRSD: 102 T: 31 QT: 413 QTc: 424 Interpretive Statements SINUS RHYTHM BASELINE ARTIFACT- I, II, III, AVR, AVL, AVF, V1-V5 NORMAL ECG Compared to ECG 08/01/2024 21:01:26 NO SIGNIFICANT CHANGE Electronically Signed On 09-14-2025 19:29:39 CDT by Anthony Levy D.O.
--- NOTE | 2025-09-14 17:49 | ED.SYNCOPE ---
HPI - Syncope General Chief Complaint: Syncope <Kailey Chamberlain PA-C - Last Filed: 09/14/25 22:04> Stated Complaint: syncope <Kailey Chamberlain PA-C - Last Filed: 09/14/25 22:04> Time Seen by Provider: 09/14/25 17:41 <Kailey Chamberlain PA-C - Last Filed: 09/14/25 22:04> Source: patient <ANNAMARIE Khan Last Filed: 09/14/25 22:04> Mode of arrival: EMS <ANNAMARIE Khan Last Filed: 09/14/25 22:04> Limitations: no limitations <Kailey Chamberlain PA-C - Last Filed: 09/14/25 22:04> History of Present Illness HPI narrative: Patient is a 75 y/o female who presents to the ED via EMS with report of syncope. Patient reports she was in her house today when she began feeling very nauseous. States she did not feel right. She sat down in his chair. Her then heard the patient fall to the ground. Saw her face down on the ground. reports she was unconscious for a couple of minutes. He then helped the patient to the living room couch. She was playing on her computer for a few minutes and began feeling nauseous again, asked her to go get her a bucket to vomit in. When he returned to the living room, patient was again unconscious, face forward on the couch. Patient does not remember passing out. She does not remember feeling dizzy or lightheaded. denied seizure-like activity, denied profound confusion afterwards. No previous history of seizures or syncope. Patient notes previous history of PFO and HTN, on metoprolol. Patient denies palpitations, chest pain, shortness of breath, focal numbness or weakness. <ANNAMARIE Khan Last Filed: 09/14/25 22:04> Related Data Home Medications: Home Medications ?Medication ?Instructions ?Recorded ?Confirmed ?Last Taken ?Type ergocalciferol (vitamin D2) 1,250 1,250 mcg PO WEEKLY 02/09/23 05/16/25 Unknown History mcg (50,000 unit) capsule vitamin E (dl, acetate) 450 mg 450 mg PO DAILY 09/17/24 05/16/25 Unknown History (1,000 unit) capsule trazodone 50 mg tablet 50 mg PO DAILY 12/13/24 05/16/25 Unknown History omeprazole magnesium 20 mg 20 mg PO DAILY 03/19/25 05/16/25 Unknown History capsule,delayed release naproxen sodium 220 mg capsule 220 mg PO Q12H PRN 05/06/25 05/16/25 Unknown History (Aleve) <Kailey Chamberlain PA-C - Last Filed: 09/14/25 22:04> Allergies/Adverse Reactions: Allergies Allergy/AdvReac Type Severity Reaction Status Date / Time peanut Allergy Severe THROAT Verified 05/16/25 11:09 SWELLING celery AdvReac Mild Hives Verified 05/16/25 11:09 sesame seed AdvReac Mild Rash Verified 05/16/25 11:09 CLAMS AdvReac Mild Hives Uncoded 05/16/25 11:09 <Kailey Chamberlain PA-C - Last Filed: 09/14/25 22:04> Review of Systems Review of Systems: All systems reviewed & are unremarkable except as noted in HPI. 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 Vitamin D deficiency Decreased hearing of both ears With audiologic evaluation to 03/2025 demonstrating normal hearing of the left ear and [id number] hearing loss in the right ear Temporomandibular joint disorder Age related osteoporosis DEXA scan 12/2023 Zoledronic acid yearly with 1st treatment 12/26/2023 Essential (primary) hypertension Hypercholesteremia GERD (gastroesophageal reflux disease) Allergic rhinitis Generalized anxiety disorder Insomnia <Kailey Chamberlain PA-C - Last Filed: 09/14/25 22:04> Surgical History Surgical History: Surgical History History of colonoscopy (2013) Diverticulosis with internal hemorrhoids History of Mohs micrographic surgery for skin cancer 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, left mid cheek History of tubal ligation <Kailey Chamberlain PA-C - Last Filed: 09/14/25 22:04> Family History Family History: Family History Mother Heart disease Diabetes mellitus <Kailey Chamberlain PA-C - Last Filed: 09/14/25 22:04> Social History Social History: Social History Social History: Code status: Full code Surrogate decision maker: Smoking status: Former smoker Alcohol intake: current Alcohol use details: occasionally Substance use: never Substance use type: does not use Do You Feel Safe in your Home?: Yes Lack of Transportation: No Lack of Food: Never True Current Housing: I Have Housing Concerned About Future Housing: No Difficulty Paying Gas/Electric Bills: No Difficulty Paying for Meds: No Currently Unemployed: YES Education: Trade/Vocational Certificate Difficulty w/ Childcare or Family Care: No Living arrangements: with family Occupation/Education: retired Gender identity (if verbalized by the patient): Female Sexual Orientation (if Verbalized by the Patient): Straight or Heterosexual <Kailey Chamberlain PA-C - Last Filed: 09/14/25 22:04> Exam Narrative: GENERAL: Elderly but well appearing, well-nourished, non-toxic, in no acute distress. HEAD: Normocephalic, atraumatic. EYES: PERRL/EOMI, conjunctivae clear bilaterally. No nystagmus. NECK: Supple. No meningeal signs. RESPIRATORY: Airway patent, respirations nonlabored. Clear to auscultation bilaterally, no rales, rhonchi, wheezing. CARDIOVASCULAR: Regular rate and rhythm without murmurs, rubs, or gallops. Peripheral pulses 2+ and equal bilaterally. MUSCULOSKELETAL: Moves all extremities. No gross deformities. SKIN: Warm, dry, normal color. No rashes. NEURO: A&O X3. Speech clear. Follows commands. CN II-XII intact. Sensation grossly intact. Steady gait. No ataxic movements. Strength 5/5 in upper and lower extremities bilaterally. Ijbo-vz-zigd and scboxz-me-rotb testing intact bilaterally. No pronator drift. Equal conference producer strength bilaterally. PSYCHIATRIC: Appropriate mood and affect. Normal interaction. 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 I performed all aspects of the MDM as documented. <Dom Kendall MD - Last Filed: 09/14/25 22:02> Vital Signs Vital signs: Vital Signs Temperature 97.6 F 09/14/25 17:34 Pulse Rate 69 09/14/25 17:34 Respiratory Rate 18 09/14/25 17:34 Blood Pressure 178/68 H 09/14/25 17:34 Pulse Oximetry 99 09/14/25 17:34 Oxygen Delivery Room Air 09/14/25 17:34 Temperature 97.6 F 09/14/25 17:34 Pulse Rate 72 09/14/25 21:14 Respiratory Rate 18 09/14/25 21:14 Blood Pressure 130/61 09/14/25 21:14 Pulse Oximetry 97 09/14/25 21:14 Oxygen Delivery Room Air 09/14/25 17:34 <Kailey Chamberlain PA-C - Last Filed: 09/14/25 22:04> Vital Signs Temperature 97.6 F 09/14/25 17:34 Pulse Rate 69 09/14/25 17:34 Respiratory Rate 18 09/14/25 17:34 Blood Pressure 178/68 H 09/14/25 17:34 Pulse Oximetry 99 09/14/25 17:34 Oxygen Delivery Room Air 09/14/25 17:34 Temperature 97.6 F 09/14/25 17:34 Pulse Rate 72 09/14/25 21:14 Respiratory Rate 18 09/14/25 21:14 Blood Pressure 130/61 09/14/25 21:14 Pulse Oximetry 97 09/14/25 21:14 Oxygen Delivery Room Air 09/14/25 17:34 <Dom Kendall MD - Last Filed: 09/14/25 22:02> MDM - Syncope MDM Narrative Medical decision making narrative: Patient presented to ED with syncope x2 this afternoon. Reported feeling nauseous prior to the episodes, but otherwise denied any prodromal symptoms including dizziness/lightheadedness. History of known PFO diagnosed several years ago, hypertension. Vital signs are stable upon arrival. No orthostatic hypotension. Patient neurologically intact. No acute focal deficits. EKG with sinus rhythm, no significant concerning ST changes. Troponin undetectable. Basic laboratory studies are otherwise fairly unremarkable. No leukocytosis or anemia. No electrolyte derangement. D-dimer within normal range. UA without signs of infection. CT brain and CTA of brain and carotids was unremarkable. Chest x-ray clear. At this time, unclear etiology of syncope. Concern for cardiac dysrhythmia versus central process such as CVA/TIA Discussed case with Dr. Mast, neurology, recommended MRI/EEG/ECHO, sz precautions Discussed case with Dr. Anand, hospitalist, accepted patient for admission. Patient and family are in agreement with plan. -- This visit was performed by both a physician and an APC. I performed all aspects of the MDM as documented. 09/14/25 10:02 pm CDT - Dom Kendall <Kailey Chamberlain PA-C - Last Filed: 09/14/25 22:04> Patient presented to ED with syncope x2 this afternoon. Reported feeling nauseous prior to the episodes, but otherwise denied any prodromal symptoms including dizziness/lightheadedness History of known PFO, hypertension. Vital signs are stable upon arrival. No orthostatic hypotension. Patient neurologically intact. No acute focal deficits. EKG with sinus rhythm, no significant concerning ST changes. Troponin undetectable. Basic laboratory studies are otherwise fairly unremarkable. No leukocytosis or anemia. No electrolyte derangement. D-dimer within normal range. UA without signs of infection. CT brain and CTA of brain and carotids was unremarkable. Chest x-ray clear. At this time, unclear etiology of syncope. Concern for cardiac dysrhythmia versus central process such as CVA/TIA Discussed case with Dr. Mast, neurology, recommended MRI/EEG/ECHO, sz precautions Discussed case with Dr. Anand, hospitalist, accepted patient for admission. This visit was performed by both a physician and an APC. I performed all aspects of the MDM as documented. <Dom Kendall MD - Last Filed: 09/14/25 22:02> Differential Diagnosis Differential diagnosis: Likely syncope due to orthostatic hypotension, vasovagal syncope, dehydration and other (Arrhythmia, cardiogenic syncope, electrolyte abnormality, CVA, seizure) <Dom Kendall MD - Last Filed: 09/14/25 22:02> Medical Records Attestation: I reviewed the patient's medical records. <Kailey Chamberlain PA-C - Last Filed: 09/14/25 22:04> Lab Data Attestation: I reviewed the patient's lab results. <Kailey Chamberlain PA-C - Last Filed: 09/14/25 22:04> Result diagrams: 09/14/25 17:45 09/14/25 17:45 <Kailey Chamberlain PA-C - Last Filed: 09/14/25 22:04> Labs: Lab Results 09/14/25 09/14/25 09/14/25 Range/Units 17:45 17:45 17:45 WBC 7.7 (4.5-10.0) K/mm3 RBC 4.30 (4.2-5.4) M/mm3 Hgb 12.6 (12.0-15.0) g/dL Hct 38.1 (37.0-47.0) % MCV 88.6 (80-100) fl MCH 29.3 (26-34) pg MCHC 33.1 (32-36) g/dl RDW 12.7 (11.5-14.5) % Plt Count 312 (150-375) k/mm3 MPV 8.8 (7.4-10.4) fl Immature Gran % (Auto) 0.5 (0-0.5) % Neut % (Auto) 46.3 (45.5-73.1) % Lymph % (Auto) 38.3 (18.3-44.2) % [place]anan % (Auto) 9.3 H (2.6-8.5) % Eos % (Auto) 4.7 H (0-4.4) % Baso % (Auto) 0.9 (0.2-1.2) % Lymph # (Auto) 2.96 (0.9-3.2) K/mm3 [place] # (Auto) 0.7 H (0.1-0.6) K/mm3 Eos # (Auto) 0.4 H (0-0.3) K/mm3 Baso # (Auto) 0.1 (0.0-0.1) K/mm3 Abs Immat Gran (auto) 0.04 H (0.00-0.031) K/mm3 Absolute Neuts (auto) 3.6 (1.3-6.7) K/mm3 Absolute Nucleated RBC 0.000 (0.0-0.012) K/mm3 Nucleated RBC % 0.0 (0.0-0.2) % PT 12.1 (11.1-14.7) Seconds INR 0.9 APTT 26.1 (22.3-36.8) Seconds D-Dimer 0.28 (<0.48) ug/mL Sodium 137 (137-145) mmol/L Potassium 4.1 (3.4-5.0) mmol/L Chloride 103 (98-107) mmol/L Carbon Dioxide 27 (22-30) mmol/L Anion Gap 7 (4-12) mmol/L BUN 17 (7-17) mg/dL Creatinine 0.70 (0.7-1.0) mg/dL Estim Creat Clear Calc Not Reportable Estimated GFR > 60 (59 - ) Glucose 110 (65-110) mg/dL Calcium 8.8 (8.4-10.2) mg/dL Magnesium 2.0 Cancelled (1.6-2.3) mg/dL Total Bilirubin 0.4 (0.2-1.3) mg/dL AST 30 (14-36) U/L ALT 20 (6-35) U/L Alkaline Phosphatase 65 (38-126) U/L Troponin I < 0.012 Cancelled (0.000-0.034) ng/mL Total Protein 7.5 (6.3-8.2) g/dL Albumin 4.1 (3.5-5.1) g/dL Urine Color (Yellow) Urine Appearance (Clear) Urine pH (5.0-9.0) Ur Specific [place] (1.001-1.035) Urine Protein (Negative) mg/dL Urine Glucose (UA) (Negative) mg/dL Urine Ketones (Negative) mg/dL Ur Blood (Man) (Negative) Urine Nitrate (Negative) Urine Bilirubin (Negative) Urine Urobilinogen (<2.0) mg/dL Add Ur Microanalysis Leukocyte Esterase Rfl (Negative) CL/UL Urine RBC (0-2) /hpf Urine WBC (0-3) /hpf Ur Squamous Epith Cells (Few) /hpf Urine Bacteria /hpf Urine Casts // Range/Units 18:48 WBC (4.5-10.0) K/mm3 RBC (4.2-5.4) M/mm3 Hgb (12.0-15.0) g/dL Hct (37.0-47.0) % MCV (80-100) fl MCH (26-34) pg MCHC (32-36) g/dl RDW (11.5-14.5) % Plt Count (150-375) k/mm3 MPV (7.4-10.4) fl Immature Gran % (Auto) (0-0.5) % Neut % (Auto) (45.5-73.1) % Lymph % (Auto) (18.3-44.2) % [place]anan % (Auto) (2.6-8.5) % Eos % (Auto) (0-4.4) % Baso % (Auto) (0.2-1.2) % Lymph # (Auto) (0.9-3.2) K/mm3 [place] # (Auto) (0.1-0.6) K/mm3 Eos # (Auto) (0-0.3) K/mm3 Baso # (Auto) (0.0-0.1) K/mm3 Abs Immat Gran (auto) (0.00-0.031) K/mm3 Absolute Neuts (auto) (1.3-6.7) K/mm3 Absolute Nucleated RBC (0.0-0.012) K/mm3 Nucleated RBC % (0.0-0.2) % PT (11.1-14.7) Seconds INR APTT (22.3-36.8) Seconds D-Dimer (<0.48) ug/mL Sodium (137-145) mmol/L Potassium (3.4-5.0) mmol/L Chloride (98-107) mmol/L Carbon Dioxide (22-30) mmol/L Anion Gap (4-12) mmol/L BUN (7-17) mg/dL Creatinine (0.7-1.0) mg/dL Estim Creat Clear Calc Estimated GFR (59 - ) Glucose (65-110) mg/dL Calcium (8.4-10.2) mg/dL Magnesium (1.6-2.3) mg/dL Total Bilirubin (0.2-1.3) mg/dL AST (14-36) U/L ALT (6-35) U/L Alkaline Phosphatase (38-126) U/L Troponin I (0.000-0.034) ng/mL Total Protein (6.3-8.2) g/dL Albumin (3.5-5.1) g/dL Urine Color Yellow (Yellow) Urine Appearance Clear (Clear) Urine pH 7.0 (5.0-9.0) Ur Specific [place] 1.019 (1.001-1.035) Urine Protein Negative (Negative) mg/dL Urine Glucose (UA) Negative (Negative) mg/dL Urine Ketones Negative (Negative) mg/dL Ur Blood (Man) Negative (Negative) Urine Nitrate Negative (Negative) Urine Bilirubin Negative (Negative) Urine Urobilinogen 0.2 (<2.0) mg/dL Add Ur Microanalysis Reviewed Leukocyte Esterase Rfl 1+ H (Negative) CL/UL Urine RBC 3-5 H (0-2) /hpf Urine WBC 0-5 (0-3) /hpf Ur Squamous Epith Cells None seen (Few) /hpf Urine Bacteria None seen /hpf Urine Casts 0-2 <Kailey Chamberlain PA-C - Last Filed: 09/14/25 22:04> Lab Results 09/14/25 09/14/25 09/14/25 Range/Units 17:45 17:45 17:45 WBC 7.7 (4.5-10.0) K/mm3 RBC 4.30 (4.2-5.4) M/mm3 Hgb 12.6 (12.0-15.0) g/dL Hct 38.1 (37.0-47.0) % MCV 88.6 (80-100) fl MCH 29.3 (26-34) pg MCHC 33.1 (32-36) g/dl RDW 12.7 (11.5-14.5) % Plt Count 312 (150-375) k/mm3 MPV 8.8 (7.4-10.4) fl Immature Gran % (Auto) 0.5 (0-0.5) % Neut % (Auto) 46.3 (45.5-73.1) % Lymph % (Auto) 38.3 (18.3-44.2) % Buchanan % (Auto) 9.3 H (2.6-8.5) % Eos % (Auto) 4.7 H (0-4.4) % Baso % (Auto) 0.9 (0.2-1.2) % Lymph # (Auto) 2.96 (0.9-3.2) K/mm3 [place] # (Auto) 0.7 H (0.1-0.6) K/mm3 Eos # (Auto) 0.4 H (0-0.3) K/mm3 Baso # (Auto) 0.1 (0.0-0.1) K/mm3 Abs Immat Gran (auto) 0.04 H (0.00-0.031) K/mm3 Absolute Neuts (auto) 3.6 (1.3-6.7) K/mm3 Absolute Nucleated RBC 0.000 (0.0-0.012) K/mm3 Nucleated RBC % 0.0 (0.0-0.2) % PT 12.1 (11.1-14.7) Seconds INR 0.9 APTT 26.1 (22.3-36.8) Seconds D-Dimer 0.28 (<0.48) ug/mL Sodium 137 (137-145) mmol/L Potassium 4.1 (3.4-5.0) mmol/L Chloride 103 (98-107) mmol/L Carbon Dioxide 27 (22-30) mmol/L Anion Gap 7 (4-12) mmol/L BUN 17 (7-17) mg/dL Creatinine 0.70 (0.7-1.0) mg/dL Estim Creat Clear Calc Not Reportable Estimated GFR > 60 (59 - ) Glucose 110 (65-110) mg/dL Calcium 8.8 (8.4-10.2) mg/dL Magnesium 2.0 Cancelled (1.6-2.3) mg/dL Total Bilirubin 0.4 (0.2-1.3) mg/dL AST 30 (14-36) U/L ALT 20 (6-35) U/L Alkaline Phosphatase 65 (38-126) U/L Troponin I < 0.012 Cancelled (0.000-0.034) ng/mL Total Protein 7.5 (6.3-8.2) g/dL Albumin 4.1 (3.5-5.1) g/dL Urine Color (Yellow) Urine Appearance (Clear) Urine pH (5.0-9.0) Ur Specific [place] (1.001-1.035) Urine Protein (Negative) mg/dL Urine Glucose (UA) (Negative) mg/dL Urine Ketones (Negative) mg/dL Ur Blood (Man) (Negative) Urine Nitrate (Negative) Urine Bilirubin (Negative) Urine Urobilinogen (<2.0) mg/dL Add Ur Microanalysis Leukocyte Esterase Rfl (Negative) CL/UL Urine RBC (0-2) /hpf Urine WBC (0-3) /hpf Ur Squamous Epith Cells (Few) /hpf Urine Bacteria /hpf Urine Casts /25/25 Range/Units 18:48 WBC (4.5-10.0) K/mm3 RBC (4.2-5.4) M/mm3 Hgb (12.0-15.0) g/dL Hct (37.0-47.0) % MCV (80-100) fl MCH (26-34) pg MCHC (32-36) g/dl RDW (11.5-14.5) % Plt Count (150-375) k/mm3 MPV (7.4-10.4) fl Immature Gran % (Auto) (0-0.5) % Neut % (Auto) (45.5-73.1) % Lymph % (Auto) (18.3-44.2) % Buchanan % (Auto) (2.6-8.5) % Eos % (Auto) (0-4.4) % Baso % (Auto) (0.2-1.2) % Lymph # (Auto) (0.9-3.2) K/mm3 [place] # (Auto) (0.1-0.6) K/mm3 Eos # (Auto) (0-0.3) K/mm3 Baso # (Auto) (0.0-0.1) K/mm3 Abs Immat Gran (auto) (0.00-0.031) K/mm3 Absolute Neuts (auto) (1.3-6.7) K/mm3 Absolute Nucleated RBC (0.0-0.012) K/mm3 Nucleated RBC % (0.0-0.2) % PT (11.1-14.7) Seconds INR APTT (22.3-36.8) Seconds D-Dimer (<0.48) ug/mL Sodium (137-145) mmol/L Potassium (3.4-5.0) mmol/L Chloride (98-107) mmol/L Carbon Dioxide (22-30) mmol/L Anion Gap (4-12) mmol/L BUN (7-17) mg/dL Creatinine (0.7-1.0) mg/dL Estim Creat Clear Calc Estimated GFR (59 - ) Glucose (65-110) mg/dL Calcium (8.4-10.2) mg/dL Magnesium (1.6-2.3) mg/dL Total Bilirubin (0.2-1.3) mg/dL AST (14-36) U/L ALT (6-35) U/L Alkaline Phosphatase (38-126) U/L Troponin I (0.000-0.034) ng/mL Total Protein (6.3-8.2) g/dL Albumin (3.5-5.1) g/dL Urine Color Yellow (Yellow) Urine Appearance Clear (Clear) Urine pH 7.0 (5.0-9.0) Ur Specific [place] 1.019 (1.001-1.035) Urine Protein Negative (Negative) mg/dL Urine Glucose (UA) Negative (Negative) mg/dL Urine Ketones Negative (Negative) mg/dL Ur Blood (Man) Negative (Negative) Urine Nitrate Negative (Negative) Urine Bilirubin Negative (Negative) Urine Urobilinogen 0.2 (<2.0) mg/dL Add Ur Microanalysis Reviewed Leukocyte Esterase Rfl 1+ H (Negative) CL/UL Urine RBC 3-5 H (0-2) /hpf Urine WBC 0-5 (0-3) /hpf Ur Squamous Epith Cells None seen (Few) /hpf Urine Bacteria None seen /hpf Urine Casts 0-2 <Dom Kendall MD - Last Filed: 09/14/25 22:02> Imaging Data Attestation: I personally reviewed and interpreted this imaging study as follows: <Kailey Chamberlain PA-C - Last Filed: 09/14/25 22:04> Radiologist's impression: ITS Impressions Head CT 09/14/25 17:59 Impression: 1.No acute intracranial abnormality. Chest X-Ray 09/14/25 18:00 Impression: No acute cardiopulmonary abnormality. Head/Neck CTA 09/14/25 19:27 IMPRESSION: 1. No critical stenosis, aneurysm or occlusion identified. <Kailey Chamberlain PA-C - Last Filed: 09/14/25 22:04> ECG Data EKG #1: Attestation: I personally reviewed and interpreted this ECG as follows: <Kailey Chamberlain PA-C - Last Filed: 09/14/25 22:04> ECG completion date: 09/14/25 <ANNAMARIE Khan Last Filed: 09/14/25 22:04> ECG completion time: 17:38 <ANNAMARIE Khan Last Filed: 09/14/25 22:04> EKG Interpretation: normal rate (63), sinus rhythm and non-specific ST changes <ANNAMARIE Khan Last Filed: 09/14/25 22:04> Discharge Plan Discharge Clinical Impression: PFO (patent foramen ovale) Syncope Qualifiers: Syncope type: vasovagal syncope Qualified Code(s): R55 - Syncope and collapse <ANNAMARIE Khan Last Filed: 09/14/25 22:04> Patient Disposition: Still a Patient <ANNAMARIE Khan Last Filed: 09/14/25 22:04> Condition: Stable <Kailey Chamberlain PA-C - Last Filed: 09/14/25 22:04>
[2025-09-14 17:57] LABS: Hematocrit 38.1 % (37.0-47.0); Hemoglobin 12.6 g/dL (12.0-15.0); Immature Granulocyte Percent A 0.5 % (0-0.5); Lymphocytes Absolute Auto 2.96 K/mm3 (0.9-3.2); Mean Corpuscular HGB Conc 33.1 g/dl (32-36); Mean Corpuscular Hemoglobin 29.3 pg (26-34); Mean Corpuscular Volume 88.6 fl (80-100); Nucleated Red Blood Cells Absolute Auto 0.000 K/mm3 (0.0-0.012); Nucleated Red Blood Cells Perc 0.0 % (0.0-0.2); Platelet Count Result 312 k/mm3 (150-375); Red Blood Count 4.30 M/mm3 (4.2-5.4); White Blood Count 7.7 K/mm3 (4.5-10.0)
[2025-09-14 18:09] LABS: INR 0.9; Prothrombin Time 12.1 Seconds (11.1-14.7)
[2025-09-14 18:10] LABS: Partial Thromboplastin Time 26.1 Seconds (22.3-36.8)
[2025-09-14 18:49] LABS: Alanine Aminotransferase 20 U/L (6-35); Albumin Level 4.1 g/dL (3.5-5.1); Alkaline Phosphatase 65 U/L (38-126); Anion Gap 7 mmol/L (4-12); Aspartate Amino Transferase 30 U/L (14-36); Bilirubin,Total 0.4 mg/dL (0.2-1.3); Blood Urea Nitrogen 17 mg/dL (7-17); Calcium 8.8 mg/dL (8.4-10.2); Carbon Dioxide 27 mmol/L (22-30); Chloride 103 mmol/L (98-107); Estimated Glomerular Filt Rate > 60; Glucose 110 mg/dL (65-110); Magnesium 2.0 mg/dL (1.6-2.3); Potassium 4.1 mmol/L (3.4-5.0); Sodium 137 mmol/L (137-145); Total Protein 7.5 g/dL (6.3-8.2)
[2025-09-14 18:55] LABS: Troponin I < 0.012 ng/mL (0.000-0.034)
[2025-09-14] MEDS: SODIUM CHLORIDE 0.9% IV 1,000 ML 999 ML IV CONT (19:26)
[2025-09-14 19:35] LABS: Add Urine Microscopic? YES; Appearance Urine Clear (Clear); Glucose Urine UA Negative (Negative); Leukocyte Esterase Ur 1+ LEU/UL (Negative); Need Manual Microscopic Reviewed; Nitrate Urine Negative (Negative); Non Pathogenic Casts 0-2; Specific Grav Ur 1.019 (1.001-1.035)
--- NOTE | 2025-09-14 21:23 | P.HP_ITS ---
H&P: HPI History of Present Illness Date/Time: 09/14/25 21:23 Chief Complaint: Passed out twice Narrative: 75-year-old female with a past medical history of osteoporosis, patent foramen ovale, essential hypertension, GERD and anxiety who presented to the ER via EMS after having 2 syncopal episodes at home. She reports that her had been in the hospital recently for surgery. She was feeling tired and did not want a cook so they decided to eat some leftovers. She ate some chicken pizza that with about 5-day-old. About assisted through the 2nd slice of pizza as she started to feel nauseous and realize that pizza may not be good but still finished the 2nd slice. She then began feeling nauseous and went to the bathroom thinking that if she vomited that would be the better place to get sick. But she began to feel weak and chilled with diaphoresis so she walked out into the [place] to sit in a chair. Her came and found her on the ground. She states that she could hear her calling her name but could not respond to him.. She was face down on the ground and was unconscious for ?a couple of minutes?. He helped her to the couch. She reported that she felt better with but was still nauseous and asked her to go get a bucket for to throw up in. When he returned to the living room she was again unconscious. She reports that she never did vomit. She denies having any diarrhea and her last normal bowel movement was this morning. Her denied witnessing any seizure-like activity or confusion after syncopal episodes. The patient has never had a history of prior syncopal episodes or seizures. She denies any chest pain, shortness and breath, lower GI symptoms, dysuria, loss of bowel or bladder function or lightheadedness with position changes. Orthostatics performed in the ER were normal. CBC CMP and troponin were all normal UA demonstrated mild pyuria without bacteriuria. Chest x-ray, noncontrast CT of the head and CT of the head and neck were all personally reviewed and confirmed to be normal by Radiology. EKG was personally reviewed and demonstrated normal sinus rhythm with a rate of 63. The patient had no observed arrhythmias per EMS or noted on telemetry in the ER. She reports that she was diagnosed with a PFO approximately 20 years ago. She has been asymptomatic from her PFO. She has not had any echocardiogram or stress test since her initial diagnosis. Review of Systems 2 Review of Systems: 12 systems were reviewed with pertinent positives and negatives per HPI. Except as documented in the HPI, all other systems were reviewed and are negative. 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 Vitamin D deficiency Decreased hearing of both ears With audiologic evaluation to 03/2025 demonstrating normal hearing of the left ear and [id number] hearing loss in the right ear Temporomandibular joint disorder Age related osteoporosis DEXA scan 12/2023 Zoledronic acid yearly with 1st treatment 12/26/2023 Essential (primary) hypertension Hypercholesteremia GERD (gastroesophageal reflux disease) Allergic rhinitis Generalized anxiety disorder Insomnia Surgical History Surgical History History of colonoscopy (2013) Diverticulosis with internal hemorrhoids History of Mohs micrographic surgery for skin cancer 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, left mid cheek History of tubal ligation Family History Family History (Updated 09/15/25 @ 03:34 by Frances Anand DO) Mother Heart disease Diabetes mellitus Son Cancer of kidney Son Cystic kidney disease Social History Social History (Updated 09/15/25 @ 03:33 by Frances nAand DO) Social History: She lives with her of 54 years. She she and her raised 2 sons. She briefly smoked in her late teens and early 20s. She drinks 1 glass a wine a month. 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 Code status: Full code Surrogate decision maker: Smoking status: Former smoker Alcohol intake: current Drinks per week: 1 Alcohol use details: occasionally Substance use: unknown Substance use type: does not use Do You Feel Safe in your Home?: Yes Lack of Transportation: No Lack of Food: Never True Current Housing: I Have Housing Concerned About Future Housing: No Difficulty Paying Gas/Electric Bills: No Difficulty Paying for Meds: No Currently Unemployed: No Education: High School Diploma/GED Difficulty w/ Childcare or Family Care: No Living arrangements: with family Occupation/Education: retired Gender identity (if verbalized by the patient): Female Sexual Orientation (if Verbalized by the Patient): Straight or Heterosexual Spiritual care concerns: No Meds Home Medications and Allergies Home Medications ?Medication ?Instructions ?Recorded ?Confirmed ?Type ergocalciferol (vitamin D2) 1,250 1,250 mcg PO WEEKLY 02/09/23 09/14/25 History mcg (50,000 unit) capsule multivitamin 1 tablet PO DAILY #90 tabs 0 08/18/23 09/14/25 Rx omega 7-mkl-dol-fish oil 1,000 mg 1 cap PO DAILY #60 c aps 08/18/23 09/14/25 Rx (120 mg-180 mg) capsule (Fish Oil) epinephrine 0.3 mg/0.3 mL 0.3 mg (0.3 mL) IM ONCE PRN 08/03/24 09/14/25 Rx injection, auto-injector hypersensitivity reaction #2 ea vitamin E (dl, acetate) 450 mg 450 mg PO DAILY 4 09/14/25 History (1,000 unit) capsule trazodone 50 mg tablet 50 mg PO DAILY 12/13/2408/22 History omeprazole magnesium 20 mg 20 mg PO DAILY 03/19/25 History capsule,delayed release metoprolol succinate 25 mg 25 mg PO DAILY #90 tabs 02/1209/14/25 Rx tablet,extended release 24 hr aspirin 81 mg tablet,delayed 81 mg PO HS 09/14/2508/22 History release (Adult Low Dose Aspirin) Allergies Allergy/AdvReac Type Severity Reaction Status Date / Time peanut Allergy Severe THROAT Verified 09/14/25 22:54 SWELLING celery AdvReac Mild Hives Verified 09/14/25 22:54 sesame seed AdvReac Mild Rash Verified 09/14/25 22:54 CLAMS AdvReac Mild Hives Uncoded 05/16/25 11:09 Vital Signs Vital Signs - 24 hr 09/14/25 17:34 09/14/25 18:37 09/14/25 18:37 Temperature 97.6 F Pulse Rate 69 67 70 Respiratory Rate 18 Blood Pressure 178/68 H 151/61 H 170/76 H Pulse Oximetry 99 Oxygen Delivery Room Air 09/14/25 18:37 09/14/25 18:49 09/14/25 19:27 Temperature Pulse Rate 66 69 73 Respiratory Rate 18 15 Blood Pressure 179/70 H 140/74 139/72 Pulse Oximetry 98 98 Oxygen Delivery 09/14/25 19:31 09/14/25 20:01 Temperature Pulse Rate 71 74 Respiratory Rate 18 17 Blood Pressure 152/64 H 131/62 Pulse Oximetry 96 97 Oxygen Delivery Exam 2 Narrative: Weight 65.1 kg BMI 29 Const: Other: No acute distress, well-developed well-nourished, appears stated age HENMT: Other: Mucous membranes are moist, no oral pharyngeal erythema, good dentition Eyes: Other: Pupils are equal and reactive, no scleral icterus, no conjunctival pallor, extraocular movements intact Neck: Other: No lymphadenopathy, no JVD, no bruits Resp: Other: Clear to auscultation bilaterally, no increased work of breathing Cardio: Other: Regular rate, regular rhythm, no murmurs Skin: Other: No jaundice, no pallor, normal temperature to touch Neuro: Other: Alert oriented x4, speech is clear and fluent, no facial asymmetry, cranial nerves 2-12 appear to be grossly intact, no localizing neurologic deficits noted Extrem: Other: Normal strength and tone of all extremities Psych: Other: Loquacious, pleasant, cooperative, intact judgment and insight H&P: Results Labs Labs: Laboratory Tests 09/14/25 17:45 09/14/25 17:45 09/14/25 09/14/25 09/14/25 17:45 17:45 17:45 WBC 7.7 RBC 4.30 Hgb 12.6 Hct 38.1 MCV 88.6 MCH 29.3 MCHC 33.1 RDW 12.7 Plt Count 312 MPV 8.8 Immature Gran % (Auto) 0.5 Neut % (Auto) 46.3 Lymph % (Auto) 38.3 Ramsey % (Auto) 9.3 H Eos % (Auto) 4.7 H Baso % (Auto) 0.9 Lymph # (Auto) 2.96 Ramsey # (Auto) 0.7 H Eos # (Auto) 0.4 H Baso # (Auto) 0.1 Abs Immat Gran (auto) 0.04 H Absolute Neuts (auto) 3.6 Absolute Nucleated RBC 0.000 Nucleated RBC % 0.0 PT 12.1 INR 0.9 APTT 26.1 D-Dimer 0.28 Sodium 137 Potassium 4.1 Chloride 103 Carbon Dioxide 27 Anion Gap 7 BUN 17 Creatinine 0.70 Estim Creat Clear Calc Not Reportable Estimated GFR > 60 Glucose 110 Calcium 8.8 Magnesium 2.0 Cancelled Total Bilirubin 0.4 AST 30 ALT 20 Alkaline Phosphatase 65 Troponin I < 0.012 Cancelled Total Protein 7.5 Albumin 4.1 Urine Color Urine Appearance Urine pH Ur Specific [place] Urine Protein Urine Glucose (UA) Urine Ketones Ur Blood (Man) Urine Nitrate Urine Bilirubin Urine Urobilinogen Add Ur Microanalysis Leukocyte Esterase Rfl Urine RBC Urine WBC Ur Squamous Epith Cells Urine Bacteria Urine Casts 09/14/25 18:48 WBC RBC Hgb Hct MCV MCH MCHC RDW Plt Count MPV Immature Gran % (Auto) Neut % (Auto) Lymph % (Auto) Ramsey % (Auto) Eos % (Auto) Baso % (Auto) Lymph # (Auto) Ramsey # (Auto) Eos # (Auto) Baso # (Auto) Abs Immat Gran (auto) Absolute Neuts (auto) Absolute Nucleated RBC Nucleated RBC % PT INR APTT D-Dimer Sodium Potassium Chloride Carbon Dioxide Anion Gap BUN Creatinine Estim Creat Clear Calc Estimated GFR Glucose Calcium Magnesium Total Bilirubin AST ALT Alkaline Phosphatase Troponin I Total Protein Albumin Urine Color Yellow Urine Appearance Clear Urine pH 7.0 Ur Specific [place] 1.019 Urine Protein Negative Urine Glucose (UA) Negative Urine Ketones Negative Ur Blood (Man) Negative Urine Nitrate Negative Urine Bilirubin Negative Urine Urobilinogen 0.2 Add Ur Microanalysis Reviewed Leukocyte Esterase Rfl 1+ H Urine RBC 3-5 H Urine WBC 0-5 Ur Squamous Epith Cells None seen Urine Bacteria None seen Urine Casts 0-[address] 09/14/25 17:59 Impression: 1.No acute intracranial abnormality. Chest X-Ray 09/14/25 18:00 Impression: No acute cardiopulmonary abnormality. Head/Neck CTA 09/14/25 19:27 IMPRESSION: 1. No critical stenosis, aneurysm or occlusion identified. EKG:Test Date: 2025-09-14 17:38:17 Measurements Intervals [place] Rate: 63 P: 50 MA: 173 QRS: -3 QRSD: 102 T: 31 QT: 413 QTc: 424 Interpretive Statements SINUS RHYTHM BASELINE ARTIFACT- I, II, III, AVR, AVL, AVF, V1-V5 NORMAL ECG Compared to ECG 08/01/2024 21:01:26 NO SIGNIFICANT CHANGE Assessment and Plan Assessment and plan (1) Syncope: Qualifiers: Syncope type: vasovagal syncope Qualified Code(s): R55 - Syncope and collapse Code(s): R55 - Syncope and collapse Status: Acute (2) Essential (primary) hypertension: Code(s): I10 - Essential (primary) hypertension Status: Acute (3) PFO (patent foramen ovale): Code(s): Q21.12 - Patent foramen ovale Status: Acute Plan The patient had 2 syncopal events in rapid succession. Given the symptoms of nausea preceding both syncopal episodes I am most suspicious of vasovagal syncope. However cannot rule out underlying cardiac arrhythmia although no EKG changes noted in the ER or telemetry changes noted. Patient will be admitted and monitored on telemetry. There is no associated electrolyte abnormalities that would cause increased risk of cardiac arrhythmia. The patient does have a history of a PFO but does not have any neurologic changes to suggest CVA and had no seizure-like activity witnessed at home with no postictal state so seizures less likely. Given concern for possible rhythm issues and history of PFO will check echocardiogram to further evaluate cardiac structure and function. With PFO depending on location patient could be at increased risk of conduction disturbances. ER provider felt the patient needed evaluation by Neurology who subsequently recommended patient have EEG MRI and be placed on seizure precautions. The patient does have essential hypertension but blood pressures are stable. No evidence of orthostatic changes. Will continue home antihypertensives. Patient has been admitted as observation status. MEDICAL DECISION MAKING NARRATIVE -Spoke with the ED provider in detail regarding patient's evaluation, workup and management -Patient seen and examined at bedside -Collaborated with patient's nurse at the bedside in detail and addressed all concerns -Labs, electrolytes, radiology, investigations and test results personally reviewed and interpreted unless otherwise specified -ED/Consult/Nursing/Ancilliary notes on the chart reviewed and appreciated -Spoke with patient at bedside and diagnosis and plan of care was discussed. All questions answered. Quality VTE Prophylaxis VTE prophylaxis: pharmacologic ordered (Lovenox 40 mg subQ daily.) Hospitalist [facility] Advance Care Plan I have confirmed that the patient's Advanced Care Plan is present, code status is documented, or surrogate decision maker is listed in patient medical record.: Yes Medication Reconciliation I have utilized all available resources to obtain, update and review the patients current medications (includes all prescriptions, OTC, herbals, cannabis, and nutritional supplements).: Yes
--- NOTE | 2025-09-14 22:27 | ADMGEN ---
This patient, Sweta Gonzalez, was admitted to Medical Room 342-01 @ 2228. Patient/family oriented to hospital policies and general routines including ID bracelet, bed and alarms, visiting hours, pain management, procedures, bathroom and other care routines, personal items, smoking policy, room service/diet, and visiting hours. Information on how to activate the Rapid Response Team has been discussed. Patient/Family are encouraged to report perceived risks to care and to ask questions if they do not understand what they are told or what they should do.
[2025-09-15] VITALS (9 sets, daily range): BP systolic 124–141; BP diastolic 65–68; PULSE 60–79; RESP 16–18; TEMP 36.6–36.8; O2SAT 97–99
[2025-09-15 00:35] LABS: Troponin I < 0.012 ng/mL (0.000-0.034)
--- NOTE | 2025-09-15 07:26 | P.PNIM_ITS ---
Progress Note: A&P Assessment and Plan (1) Syncope: Qualifiers: Syncope type: vasovagal syncope Qualified Code(s): R55 - Syncope and collapse Code(s): R55 - Syncope and collapse Status: Acute Assessment and Plan: * Most suspicious for vasovagal syncopal episodes * Orthostatic vitals unremarkable in ER * No major electrolyte abnormalities * H/o patent foramen ovale - could cause conduction issues * Head/Neck CTA: No critical stenosis, aneurysm or occlusion identified. * Chest XR: No acute cardiopulmonary abnormality. * Head CT: No acute intracranial abnormality. * Obtain Echo to assess cardiac structure/function * Brain MRI ordered, pending * Neurology consult pending (2) Essential (primary) hypertension: Code(s): I10 - Essential (primary) hypertension Status: Acute Assessment and Plan: * Patient's blood pressure was reviewed on 09/15 * Blood pressure remains well controlled * Will continue current medications (3) PFO (patent foramen ovale): Code(s): Q21.12 - Patent foramen ovale Status: Acute Assessment and Plan: * Diagnosed 20 years prior, no imaging studies since * Could be source of conduction issues causing syncopal episode * Echo to assess cardiac structure/function (4) GERD (gastroesophageal reflux disease): Code(s): K21.9 - Gastro-esophageal reflux disease without esophagitis Status: Acute Assessment and Plan: * Continue omeprazole (5) Vitamin D deficiency: Code(s): E55.9 - Vitamin D deficiency, unspecified Status: Acute Assessment and Plan: * Continue Ergocalciferol Subjective Date/time seen: 09/15/25 07:26 Interval history: 75-year-old female with a past medical history of osteoporosis, patent foramen ovale, essential hypertension, GERD and anxiety who presented to the ER via EMS after having 2 syncopal episodes at home. 09/15/2025 Patient sitting comfortably in bed at time of exam. Denies any chest pain, SOB, n/v, abd pain, headache/dizziness or episodes of syncope this morning. Accompanied by . Plan for Brain MRI, echocardiogram and neurology consult. Remains afebrile, blood work unremarkable. Review of Systems Review of Systems: 12 systems were reviewed with pertinent positives and negatives per HPI. Except as documented in the HPI, all other systems were reviewed and are negative. Exam Narrative: Weight 65.1 kg BMI 29 Const: Other: No acute distress, well-developed well-nourished, appears stated age HENMT: Other: Mucous membranes are moist, no oral pharyngeal erythema, good dentition Eyes: Other: Pupils are equal and reactive, no scleral icterus, no conjunctival pallor, extraocular movements intact Neck: Other: No lymphadenopathy, no JVD, no bruits Resp: Other: Clear to auscultation bilaterally, no increased work of breathing Cardio: Other: Regular rate, regular rhythm, no murmurs Skin: Other: No jaundice, no pallor, normal temperature to touch Neuro: Other: Alert oriented x4, speech is clear and fluent, no facial asymmetry, cranial nerves 2-12 appear to be grossly intact, no localizing neurologic deficits noted Extrem: Other: Normal strength and tone of all extremities Psych: Other: Loquacious, pleasant, cooperative, intact judgment and insight Objective Data Vital Signs Vital Signs: Vital Signs - 24 hr 09/14/25 17:34 09/14/25 18:37 09/14/25 18:37 Temperature 97.6 F Pulse Rate 69 67 70 Respiratory Rate 18 Blood Pressure 178/68 H 151/61 H 170/76 H Pulse Oximetry 99 Oxygen Delivery Room Air 09/14/25 18:37 09/14/25 18:49 09/14/25 19:27 Temperature Pulse Rate 66 69 73 Respiratory Rate 18 15 Blood Pressure 179/70 H 140/74 139/72 Pulse Oximetry 98 98 Oxygen Delivery 09/14/25 19:31 09/14/25 20:01 09/14/25 21:14 Temperature Pulse Rate 71 74 72 Respiratory Rate 18 17 18 Blood Pressure 152/64 H 131/62 130/61 Pulse Oximetry 96 97 97 Oxygen Delivery 09/14/25 21:31 09/14/25 22:01 09/14/25 22:53 Temperature 98.0 F Pulse Rate 69 69 62 Respiratory Rate 17 14 18 Blood Pressure 130/64 124/65 147/71 H Pulse Oximetry 96 97 99 Oxygen Delivery 09/15/25 00:00 09/15/25 04:00 09/15/25 05:57 Temperature 97.9 F Pulse Rate 67 60 60 Respiratory Rate 16 Blood Pressure 124/68 Pulse Oximetry 98 Oxygen Delivery Intake/Output Intake/Output: Intake & Output 10/23/25 10/24/25 10/25/25 10/26/25 23:59 23:59 23:59 23:59 Intake Total 1000 200 Balance 1000 200 Meds/Results Medications: Active Medications Generic Name Dose Route Start Last Admin Trade Name Freq PRN Reason Stop Dose Admin Acetaminophen 650 mg 09/14/25 21:08 Acetaminophen 325 Mg Tablet PO Q4H PRN Mild Pain (1-3) or Fever Dextrose 12.5 gm 09/14/25 21:12 Dextrose 50% 25 Gm/50 Ml Syringe IV PUSH PRN PRN Hypoglycemia Protocol Enoxaparin Sodium 40 mg 09/15/25 09:00 Enoxaparin 40 Mg/0.4 Ml Syringe SUB-Q DAILY [place] Glucagon 1 mg 09/14/25 21:12 Glucagon For Inj 1 Mg Vial IM PRN PRN Hypoglycemia Protocol Glucose 15 gm 09/14/25 21:12 Glucose Oral Gel 15 Gm Of Glucse In 37.5 Gm Tube PO PRN PRN Hypoglycemia Protocol Dextrose 1,000 mls @ 100 mls/hr 09/14/25 21:12 Dextrose 5% 1,000 Ml IVPB PRN PRN Hypoglycemia Protocol Ondansetron HCl 4 mg 09/14/25 21:08 Ondansetron Inj 4 Mg/2 Ml Vial IV PUSH Q4H PRN Nausea Perflutren Lipid Microsphere 0 ml 09/14/25 20:59 Perflutren Lipid Microspheres 1.5 Ml Vial Diluted To 10 Ml Total Volume IV PUSH 09/17/25 20:59 ONCE PRN adequate visualization Protocol Radiology Results: ITS Impressions Head CT 09/14/25 17:59 Impression: 1.No acute intracranial abnormality. Chest X-Ray 09/14/25 18:00 Impression: No acute cardiopulmonary abnormality. Head/Neck CTA 09/14/25 19:27 IMPRESSION: 1. No critical stenosis, aneurysm or occlusion identified. Labs Labs: Laboratory Results - last 24 hr 09/14/25 09/14/25 09/14/25 17:45 17:45 17:45 WBC 7.7 RBC 4.30 Hgb 12.6 Hct 38.1 MCV 88.6 MCH 29.3 MCHC 33.1 RDW 12.7 Plt Count 312 MPV 8.8 Immature Gran % (Auto) 0.5 Neut % (Auto) 46.3 Lymph % (Auto) 38.3 Kerr % (Auto) 9.3 H Eos % (Auto) 4.7 H Baso % (Auto) 0.9 Lymph # (Auto) 2.96 Kerr # (Auto) 0.7 H Eos # (Auto) 0.4 H Baso # (Auto) 0.1 Abs Immat Gran (auto) 0.04 H Absolute Neuts (auto) 3.6 Absolute Nucleated RBC 0.000 Nucleated RBC % 0.0 PT 12.1 INR 0.9 APTT 26.1 D-Dimer 0.28 Sodium 137 Potassium 4.1 Chloride 103 Carbon Dioxide 27 Anion Gap 7 BUN 17 Creatinine 0.70 Estim Creat Clear Calc Not Reportable Estimated GFR > 60 Glucose 110 Calcium 8.8 Magnesium 2.0 Cancelled Total Bilirubin 0.4 AST 30 ALT 20 Alkaline Phosphatase 65 Troponin I < 0.012 Cancelled Total Protein 7.5 Albumin 4.1 Urine Color Urine Appearance Urine pH Ur Specific [place] Urine Protein Urine Glucose (UA) Urine Ketones Ur Blood (Man) Urine Nitrate Urine Bilirubin Urine Urobilinogen Add Ur Microanalysis Leukocyte Esterase Rfl Urine RBC Urine WBC Ur Squamous Epith Cells Urine Bacteria Urine Casts 09/14/25 09/15/25 18:48 00:08 WBC RBC Hgb Hct MCV MCH MCHC RDW Plt Count MPV Immature Gran % (Auto) Neut % (Auto) Lymph % (Auto) Kerr % (Auto) Eos % (Auto) Baso % (Auto) Lymph # (Auto) Kerr # (Auto) Eos # (Auto) Baso # (Auto) Abs Immat Gran (auto) Absolute Neuts (auto) Absolute Nucleated RBC Nucleated RBC % PT INR APTT D-Dimer Sodium Potassium Chloride Carbon Dioxide Anion Gap BUN Creatinine Estim Creat Clear Calc Estimated GFR Glucose Calcium Magnesium Total Bilirubin AST ALT Alkaline Phosphatase Troponin I < 0.012 Total Protein Albumin Urine Color Yellow Urine Appearance Clear Urine pH 7.0 Ur Specific [place] 1.019 Urine Protein Negative Urine Glucose (UA) Negative Urine Ketones Negative Ur Blood (Man) Negative Urine Nitrate Negative Urine Bilirubin Negative Urine Urobilinogen 0.2 Add Ur Microanalysis Reviewed Leukocyte Esterase Rfl 1+ H Urine RBC 3-5 H Urine WBC 0-5 Ur Squamous Epith Cells None seen Urine Bacteria None seen Urine Casts 0-2 Quality VTE Prophylaxis VTE prophylaxis: pharmacologic ordered (Lovenox 40 mg subQ daily.)
[2025-09-15] MEDS: ERGOCALCIFEROL (VITAMIN D2) 1,250 MCG (50,000 UNITS) CAPSULE 1250 MCG PO (13:13)
[2025-09-15] MEDS: METOPROLOL SUCCINATE EXT REL 25 MG TABCR PO (13:13)
[2025-09-15] MEDS: PANTOPRAZOLE 40 MG TABLET PO (13:14)
[2025-09-15] MEDS: LORATADINE 10 MG TABLET PO (13:14)
[2025-09-15] MEDS: ENOXAPARIN 40 MG/0.4 ML SYRINGE SUB-Q (13:17)
[2025-09-15] MEDS: ASPIRIN 81 MG ENTERIC TABLET PO (20:16)
[2025-09-16] VITALS (8 sets, daily range): BP systolic 127–153; BP diastolic 73–77; PULSE 55–69; RESP 16–18; TEMP 36.5–36.8; O2SAT 97–99
--- NOTE | 2025-09-16 | ECHO_ITS ---
Patient Info Name: Sweta Gonzalez Age: 75 years : 1950 Gender: Female Ht: 59 in Wt: 143 lbs BSA: 1.67 m2 HR: 60 bpm BP: 153 / 73 mmHg Technical Quality: Good Exam Date: 09/16/2025 1:02 PM Patient Status: I Admit Date: 09/14/2025 Exam Type: CA echo doppler w bubble study Complete two-dimensional, color flow and Doppler transthoracic echocardiogram is performed with agitated saline. Staff Referring Physician: Kailey Chamberlain Attending Provider: Frances Anand DO Contrast/Agitated Saline Contrast/Ag. Saline: Agitated Saline Amount: 18.00 ml Administered By: Doroteo Briceño III Existing IV Access: Yes IV Access Condition: patent with no signs of infiltration Summary 1. Left ventricular chamber dimension is normal. 2. Left ventricular systolic function is normal, estimated at 60-65. 3. The left ventricular diastolic function is grade I diastolic dysfunction. 4. E/e' 11 is mildly elevated. 5. Left atrial chamber dimension is mildly enlarged. 6. There is mild aortic valve sclerosis. 7. There is mild mitral valve regurgitation. 8. No pulmonary hypertension, estimated pulmonary arterial systolic pressure is 36 mmHg. 9. There is trace pulmonic regurgitation. Left Ventricle E/e' 11 is mildly elevated. Left ventricular chamber dimension is normal. Left ventricular systolic function is normal, estimated at 60-65. The left ventricular diastolic function is grade I diastolic dysfunction. Right Ventricle Right ventricular chamber dimension is normal. Right ventricular systolic function is normal and with normal TAPSE 2.1 cm. Left Atria Left atrial chamber dimension is mildly enlarged. Right Atria Right atrial chamber dimension is normal. Atrial Septum Intact interatrial septum visualized by 2D and agitated saline imaging. Agitated saline injection with and without valsalva maneuver opacified right side cardiac chambers without shunt to left side cardiac chambers. Aortic Valve The aortic valve is trileaflet. There is mild aortic valve sclerosis. There is no aortic valve stenosis. There is no aortic valve regurgitation. Pulmonic Valve There is trace pulmonic regurgitation. Mitral Valve There is no mitral valve stenosis. There is mild mitral valve regurgitation. Tricuspid Valve There is no tricuspid valve regurgitation. No pulmonary hypertension, estimated pulmonary arterial systolic pressure is 36 mmHg. Pericardium/Pleural There is no pericardial effusion. Inferior Vena Cava Normal inferior vena cava with >50% collapse upon inspiration consistent with normal right atrial pressure, 5 mmHg. Aorta The aortic root size at the sinus of Valsalva is normal. Left Ventricular Outflow Tract Name Value Normal LVOT 2D LVOT Diameter 1.9 cm LVOT Doppler LVOT Peak Velocity 136 cm/s LVOT Peak Gradient 7 mmHg LVOT Mean Gradient 4 mmHg LVOT VTI 35 cm LVOT VTI/AV VTI Ratio 0.6 LVOT Stroke Volume 100 ml LVOT CO 6.3 l/min LVOT CI 3.8 l/min/m2 Pulmonic Valve Name Value Normal PV Doppler PV Peak Velocity 121 cm/s PV Peak Gradient 6 mmHg PV Mean Gradient 3 mmHg PV Regurgitation Doppler AR Peak End Diastolic Velocity 90 cm/s Mitral Valve Name Value Normal MV Doppler MV Peak Gradient 6 mmHg MV Mean Gradient 2 mmHg MV Area (Cont Eq VTI) 2.9 cm2 MV Regurgitation Doppler MR Peak Gradient 83 mmHg MV Diastolic Function MV E Peak Velocity 110 cm/s MV A Peak Velocity 118 cm/s MV E/A 0.9 MV Decel Time (PW) 214 ms MV Annular TDI MV E/e' (Septal) 15.1 MV E/e' (Lateral) 9.9 MV E/e' (Average) 12.5 Tricuspid Valve Name Value Normal TV Regurgitation Doppler TR Peak Velocity 278 cm/s TR Peak Gradient 23 mmHg Estimated PAP/RSVP RA Pressure 5 mmHg <=5 PA Systolic Pressure 36 mmHg <36 RV Systolic Pressure 36 mmHg <36 TV Annular TDI TV Lateral Estela s' Velocity 13.4 cm/s >=9.5 Aortic Valve Name Value Normal AV Doppler AV Peak Velocity 259 cm/s AV Peak Gradient 21 mmHg AV Mean Gradient 13 mmHg AV VTI 57 cm AV Area (Cont Eq VTI) 1.8 cm2 >=3.0 AV Area (Cont Eq Ryley) 1.5 cm2 AV DI (Ryley) 0.53 AV Regurgitation 2D LVOT Area 2.9 cm2 Ventricles Name Value Normal LV Dimensions 2D/MM IVS Diastolic Thickness (2D) 0.7 cm 0.6-1.0 LVID Diastole (2D) 4.2 cm 3.8-5.2 LVIW Diastolic Thickness (2D) 0.8 cm 0.6-0.9 LVID Systole (2D) 2.6 cm 2.2-3.5 LVOT Diameter 1.9 cm LV Mass (2D Cubed) 90.44 g 67.00-162.00 LV Mass Index (2D Cubed) 54 g/m2 43-95 Relative Wall Thickness (2D) 0.36 <=0.42 LV Fractional Shortening/Ejection Fraction 2D/MM LV Fractional Shortening (2D) 39 % 27-45 LV EF (2D Teichholz) 69 % LV Diastolic Volume (4C MOD) 72 ml LV EF (4C MOD) 72 % LV Diastolic Volume (2C MOD) 68 ml LV EF (2C MOD) 72 % LV Diastolic Volume (BP MOD) 70 ml 46-106 LV Diastolic Volume Index (BP MOD) 42 ml/m2 29-61 LV Systolic Volume (BP MOD) 20 ml 14-42 LV Systolic Volume Index (BP MOD) 12 ml/m2 8-24 LV EF (BP MOD) 72 % 54-74 LV Diastolic Length (4C) 7.6 cm LV Systolic Length (4C) 6.1 cm LV Stroke Volume (4C MOD) 52 ml Atria Name Value Normal LA Dimensions LA Volume (4C A-L) 44 ml LA Volume (BP A-L) 53 ml RA Dimensions RA Systolic Major [place] Length (4C) 5.2 cm 2.2-2.8 RA Area (4C) 16.2 cm2 <=18.0 Report Signatures
[2025-09-16 07:20] LABS: Hematocrit 36.8 % (37.0-47.0); Hemoglobin 12.3 g/dL (12.0-15.0); Immature Granulocyte Percent A 0.1 % (0-0.5); Lymphocytes Absolute Auto 2.68 K/mm3 (0.9-3.2); Mean Corpuscular HGB Conc 33.4 g/dl (32-36); Mean Corpuscular Hemoglobin 29.4 pg (26-34); Mean Corpuscular Volume 88.0 fl (80-100); Nucleated Red Blood Cells Absolute Auto 0.000 K/mm3 (0.0-0.012); Nucleated Red Blood Cells Perc 0.0 % (0.0-0.2); Platelet Count Result 281 k/mm3 (150-375); Red Blood Count 4.18 M/mm3 (4.2-5.4); White Blood Count 7.1 K/mm3 (4.5-10.0)
[2025-09-16 07:39] LABS: Alanine Aminotransferase 18 U/L (6-35); Albumin Level 3.9 g/dL (3.5-5.1); Alkaline Phosphatase 64 U/L (38-126); Anion Gap 4 mmol/L (4-12); Aspartate Amino Transferase 28 U/L (14-36); Bilirubin,Total 0.4 mg/dL (0.2-1.3); Blood Urea Nitrogen 14 mg/dL (7-17); Calcium 9.0 mg/dL (8.4-10.2); Carbon Dioxide 28 mmol/L (22-30); Chloride 106 mmol/L (98-107); Estimated Glomerular Filt Rate > 60; Glucose 88 mg/dL (65-110); Potassium 3.9 mmol/L (3.4-5.0); Sodium 138 mmol/L (137-145); Total Protein 7.0 g/dL (6.3-8.2)
[2025-09-16] MEDS: OMEGA 3 POLYUNSAT FATTY ACIDS 1 GM CAP PO (09:11)
[2025-09-16] MEDS: VITAMIN E 1,000 UNIT CAPSULE 1000 UNIT PO (09:11)
[2025-09-16] MEDS: LORATADINE 10 MG TABLET PO (09:11)
[2025-09-16] MEDS: MULTIVITAMINS THERAPEUTIC TAB (*BKC) 1 TABLET PO (09:11)
[2025-09-16] MEDS: METOPROLOL SUCCINATE EXT REL 25 MG TABCR PO (09:11)
[2025-09-16] MEDS: PANTOPRAZOLE 40 MG TABLET PO (09:11)
[2025-09-16] MEDS: ENOXAPARIN 40 MG/0.4 ML SYRINGE SUB-Q (09:12)
--- NOTE | 2025-09-16 11:21 | WPDNEURCNPN ---
Assessment and Plan Assessment and plan (1) Syncope: Qualifiers: Syncope type: vasovagal syncope Qualified Code(s): R55 - Syncope and collapse Code(s): R55 - Syncope and collapse Status: Acute (2) Essential (primary) hypertension: Code(s): I10 - Essential (primary) hypertension Status: Acute (3) PFO (patent foramen ovale): Code(s): Q21.12 - Patent foramen ovale Status: Acute (4) Hypercholesteremia: Code(s): E78.00 - Pure hypercholesterolemia, unspecified Status: Acute Plan I reviewed the CT scan brain and CT angiogram of the head and neck which did not show any significant abnormalities. His MRI of the brain shows mild white matter changes somewhat more the left than right side. Her previous LDL was high at 161 but she could not tolerate statin and she may wish to discuss with her family physician regarding alternate please although clinically she does not appear to have any evidence for stroke or stroke-like symptoms. Her history as given above is most likely suggestive of vasovagal syncope however possibility of cardiac source need to further explore since she has history of PFO. 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 I shall leave this up to you to consider cardiology consultation. An EEG also has been ordered and will be reviewed. Consult date: 09/16/25 HPI: Sweta Gonzalez is a 75 year old female Admitted to the hospital due to spells of unresponsiveness about 15 minutes apart. Apparently her was sick and came home from the hospital. She went to eat some leftover pizza. She has felt somewhat nauseous and wanted to sit down thereafter she passed out for about 2 minutes or so. She went came back to by then the of the right because he was in the next room and she has fallen down to floor. There was no incontinence of urine or blood on the mouth. He did not see any seizure-like activity. She also return back to her baseline after that however 15 minute later she started to feel nauseous again and it mention that to her and a had another spell similar to the previous spell where she was out for about 2 minutes or so and this returned back to normal state. There is no history of such spells in the past. She is known to have a patent foraminal ovale the description of that was not available however according to the patient that was said to be not large enough to require any surgical intervention. MRI of the brain has shown chronic white matter disease probably chronic ischemic changes. Her LDL was 161 on 03/15/2025. She was given a statin but she left some allergic reaction to it and after that she did not want to go back on even another statin. She lives with and does not smoke or drink any alcohol. She has been fairly active. No history of head trauma or any major febrile illness recently. 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 Vitamin D deficiency Decreased hearing of both ears With audiologic evaluation to 03/2025 demonstrating normal hearing of the left ear and [id number] hearing loss in the right ear Temporomandibular joint disorder Age related osteoporosis DEXA scan 12/2023 Zoledronic acid yearly with 1st treatment 12/26/2023 Essential (primary) hypertension Hypercholesteremia GERD (gastroesophageal reflux disease) Allergic rhinitis Generalized anxiety disorder Insomnia Surgical History Surgical History History of colonoscopy (2013) Diverticulosis with internal hemorrhoids History of Mohs micrographic surgery for skin cancer 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 She she and her raised 2 sons. She briefly smoked in her late teens and early 20s. She drinks 1 glass a wine a month. 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 Code status: Full code Surrogate decision maker: Smoking status: Former smoker Alcohol intake: current Drinks per week: 1 Alcohol use details: occasionally Substance use: unknown Substance use type: does not use Do You Feel Safe in your Home?: Yes Lack of Transportation: No Lack of Food: Never True Current Housing: I Have Housing Concerned About Future Housing: No Difficulty Paying Gas/Electric Bills: No Difficulty Paying for Meds: No Currently Unemployed: No Education: High School Diploma/GED Difficulty w/ Childcare or Family Care: No Living arrangements: with family Occupation/Education: retired Gender identity (if verbalized by the patient): Female Sexual Orientation (if Verbalized by the Patient): Straight or Heterosexual Spiritual care concerns: No Meds Home Medications and Allergies Home Medications ?Medication ?Instructions ?Recorded ?Confirmed ?Type ergocalciferol (vitamin D2) 1,250 1,250 mcg PO WEEKLY 02/09/23 09/14/25 History mcg (50,000 unit) capsule multivitamin 1 tablet PO DAILY #90 tabs 08/18/23 09/14/25 Rx omega 5-jcj-yun-fish oil 1,000 mg 1 cap PO DAILY #60 caps 08/18/23 09/14/25 Rx (120 mg-180 mg) capsule (Fish Oil) epinephrine 0.3 mg/0.3 mL 0.3 mg (0.3 mL) IM ONCE PRN 08/03/24 09/14/25 Rx injection, auto-injector hypersensitivity reaction #2 ea vitamin E (dl, acetate) 450 mg 450 mg PO DAILY 09/17/24 09/14/25 History (1,000 unit) capsule trazodone 50 mg tablet 50 mg PO DAILY 12/13/24 09/14/25 History omeprazole magnesium 20 mg 20 mg PO DAILY 03/19/25 09/14/25 History capsule,delayed release metoprolol succinate 25 mg 25 mg PO DAILY #90 tabs 08/23/25 09/14/25 Rx tablet,extended release 24 hr aspirin 81 mg tablet,delayed 81 mg PO HS 09/14/25 09/14/25 History release (Adult Low Dose Aspirin) loratadine 10 mg tablet (Allergy 10 mg PO DAILY 09/15/25 09/15/25 History Relief (loratadine)) Allergies Allergy/AdvReac Type Severity Reaction Status Date / Time peanut Allergy Severe THROAT Verified 09/14/25 22:54 SWELLING celery AdvReac Mild Hives Verified 09/14/25 22:54 sesame seed AdvReac Mild Rash Verified 09/14/25 22:54 CLAMS AdvReac Mild Hives Uncoded 05/16/25 11:09 Vital Signs Vital Signs - 24 hr 09/15/25 13:13 09/15/25 14:00 09/15/25 16:00 Temperature 98.2 F Pulse Rate 65 62 62 Respiratory Rate 18 Blood Pressure 141/66 H Pulse Oximetry 97 Oxygen Delivery 09/15/25 20:00 09/15/25 20:00 09/15/25 20:11 Temperature 98.2 F Pulse Rate 64 64 Respiratory Rate 18 Blood Pressure 129/65 Pulse Oximetry 99 Oxygen Delivery Room Air 09/16/25 00:00 09/16/25 04:00 09/16/25 04:22 Temperature 97.7 F Pulse Rate 55 L 58 L 60 Respiratory Rate 16 Blood Pressure 153/73 H Pulse Oximetry 97 Oxygen Delivery 09/16/25 09:11 Temperature Pulse Rate 69 Respiratory Rate Blood Pressure Pulse Oximetry Oxygen Delivery Exam Const: General: cooperative, healthy appearing and comfortable HENMT: Head: atraumatic Mouth: Yes oropharynx normal Eyes: Alignment and Position: alignment normal and position normal EOM: EOMs intact bilaterally Neck: Neck: normal visual inspection and supple Resp: Effort & Inspection: normal respiratory effort Cardio: Heart sounds: S1 normal heart sound present and S2 normal heart sound present Other: Ejection systolic murmur over aortic area which radiates to subclavian arteries and carotid arteries Skin: General skin exam: normal color Neuro: Cranial nerves: Yes CN's II-XII intact bilaterally, Yes facial symmetry and Yes Midline tongue present Cognition (Neuro): normal cognition Speech: normal speech Gait exam (Neuro): Normal gait present Sensory Exam: normal sensation Coordination: [id number] test normal and Normal rapid alternating movements of the distal upper extremity present (Neuro) Extrem: General: normal to inspection Psych: Appearance: well kempt Mental Status: mental status grossly normal Speech and movement: Normal speech and movement present Affect: normal affect Thought process: Normal thought process present Thought content: Yes Normal thought content present Insight: Good insight present (Psych) Judgement: Good judgement present (Psych) Results Labs 09/16/25 07:15 09/16/25 07:15 Labs: Short CBC 09/16/25 Range/Units 07:15 WBC 7.1 (4.5-10.0) K/mm3 Hgb 12.3 (12.0-15.0) g/dL Hct 36.8 L (37.0-47.0) % Plt Count 281 (150-375) k/mm3 BMP 09/16/25 07:15 Sodium 138 Potassium 3.9 Chloride 106 Carbon Dioxide 28 BUN 14 Creatinine 0.73 Glucose 88 Calcium 9.0 Liver Function 09/16/25 Range/Units 07:15 Total Bilirubin 0.4 (0.2-1.3) mg/dL AST 28 (14-36) U/L ALT 18 (6-35) U/L Alkaline Phosphatase 64 (38-126) U/L Albumin 3.9 (3.5-5.1) g/dL
--- NOTE | 2025-09-16 12:24 | WPDNEUROLOGY ---
Neurology EEG Report General Information Date of Study: 09/16/25 TEST electroencephalogram DIAGNOSIS Syncope CONDITION OF RECORDING Bedside recording EEG NUMBER [id number] CLINICAL HISTORY history of loss of consciousness preceded by nausea no incontinence of urine. No prior history of such spells. Patient had 2 spells 15 minutes apart. EEG DESCRIPTION During wakefulness the background activity consists of posterior dominant alpha rhythm at 9 hertz with an amplitude of 20-40 microvolts. This appears moderately formed and reactive to eye opening. Anteriorly low amplitude mixed frequency activity was seen. During drowsiness attenuation of background activity was seen. Patient progressed to stage 2 sleep briefly. Sleep spindles were noted. However occasional focal sharp activity was noted over the left temporal area including mid and posterior temporal area. Also occasional sharp wave transients were noted more predominant over the right frontotemporal area and times spread to both hemispheres. Hyperventilation or photic so her not performed. IMPRESSION This is an abnormal EEG obtained during awake and drowsy states due to presence of focal sharp wave activity noted over both temporal areas Independently. These are however considered nonspecific focal interictal abnormality and should be clinically correlated.
--- NOTE | 2025-09-16 13:26 | P.PNIM_ITS ---
Progress Note: A&P Assessment and Plan (1) Syncope: Qualifiers: Syncope type: vasovagal syncope Qualified Code(s): R55 - Syncope and collapse Code(s): R55 - Syncope and collapse Status: Acute Assessment and Plan: * Most suspicious for vasovagal syncopal episodes * Orthostatic vitals unremarkable in ER * No major electrolyte abnormalities * H/o patent foramen ovale - could cause conduction issues * Head/Neck CTA: No critical stenosis, aneurysm or occlusion identified. * Chest XR: No acute cardiopulmonary abnormality. * Head CT: No acute intracranial abnormality. * Obtain Echo to assess cardiac structure/function * Cardiology consult pending as well * Brain MRI: Probable scattered areas of chronic periventricular ischemic change. Other demyelinating etiologies however are not excluded. Six-month follow-up is recommended to assess * EEG: abnormal EEG obtained during awake and drowsy states due to presence of focal sharp wave activity noted over both temporal areas Independently. * Neurology consult - appreciate further recommendations (2) Essential (primary) hypertension: Code(s): I10 - Essential (primary) hypertension Status: Acute Assessment and Plan: * Patient's blood pressure was reviewed on 09/15 * Blood pressure remains well controlled * Will continue current medications (3) PFO (patent foramen ovale): Code(s): Q21.12 - Patent foramen ovale Status: Acute Assessment and Plan: * Diagnosed 20 years prior, no imaging studies since * Could be source of conduction issues causing syncopal episode * Echo to assess cardiac structure/function (4) GERD (gastroesophageal reflux disease): Code(s): K21.9 - Gastro-esophageal reflux disease without esophagitis Status: Acute Assessment and Plan: * Continue omeprazole (5) Vitamin D deficiency: Code(s): E55.9 - Vitamin D deficiency, unspecified Status: Acute Assessment and Plan: * Continue Ergocalciferol Subjective Date/time seen: 09/16/25 13:26 Interval history: 75-year-old female with a past medical history of osteoporosis, patent foramen ovale, essential hypertension, GERD and anxiety who presented to the ER via EMS after having 2 syncopal episodes at home. 09/16/2025 Patient sitting comfortably in bed at time of exam. Denies any chest pain, SOB, n/v, abd pain, headache/dizziness or episodes of syncope this morning. EEG performed - showed sharp focal wave activity but per Neurology, presentation of symptoms not consistent with seizure. Will consult Cardiology per neurologist's request while waiting for echocardiogram to be obtained and read. Pt otherwise stable. Review of Systems Review of Systems: 12 systems were reviewed with pertinent positives and negatives per HPI. Except as documented in the HPI, all other systems were reviewed and are negative. Exam Narrative: Weight 65.1 kg BMI 29 Const: Other: No acute distress, well-developed well-nourished, appears stated age HENMT: Other: Mucous membranes are moist, no oral pharyngeal erythema, good dentition Eyes: Other: Pupils are equal and reactive, no scleral icterus, no conjunctival pallor, extraocular movements intact Neck: Other: No lymphadenopathy, no JVD, no bruits Resp: Other: Clear to auscultation bilaterally, no increased work of breathing Cardio: Other: Regular rate, regular rhythm, no murmurs Skin: Other: No jaundice, no pallor, normal temperature to touch Neuro: Other: Alert oriented x4, speech is clear and fluent, no facial asymmetry, cranial nerves 2-12 appear to be grossly intact, no localizing neurologic deficits noted Extrem: Other: Normal strength and tone of all extremities Psych: Other: Loquacious, pleasant, cooperative, intact judgment and insight Objective Data Vital Signs Vital Signs: Vital Signs - 24 hr 09/15/25 14:00 09/15/25 16:00 09/15/25 20:00 Temperature 98.2 F Pulse Rate 62 62 Respiratory Rate 18 Blood Pressure 141/66 H Pulse Oximetry 97 Oxygen Delivery Room Air 09/15/25 20:00 09/15/25 20:11 09/16/25 00:00 Temperature 98.2 F Pulse Rate 64 64 55 L Respiratory Rate 18 Blood Pressure 129/65 Pulse Oximetry 99 Oxygen Delivery 09/16/25 04:00 09/16/25 04:22 09/16/25 09:11 Temperature 97.7 F Pulse Rate 58 L 60 69 Respiratory Rate 16 Blood Pressure 153/73 H Pulse Oximetry 97 Oxygen Delivery 09/16/25 09:12 Temperature Pulse Rate Respiratory Rate Blood Pressure Pulse Oximetry Oxygen Delivery Room Air Intake/Output Intake/Output: Intake & Output 09/13/25 09/14/25 09/15/25 09/16/25 23:59 23:59 23:59 23:59 Intake Total 1000 1470 540 Balance 1000 1470 540 Meds/Results Medications: Active Medications Generic Name Dose Route Start Last Admin Trade Name Freq PRN Reason Stop Dose Admin Acetaminophen 650 mg 09/14/25 21:08 Acetaminophen 325 Mg Tablet PO Q4H PRN Mild Pain (1-3) or Fever Aspirin 81 mg 09/15/25 21:00 09/15/25 20:16 Aspirin 81 Mg Enteric Tablet PO 81 mg HS DAKOTA Administration Dextrose 12.5 gm 09/14/25 21:12 Dextrose 50% 25 Gm/50 Ml Syringe IV PUSH PRN PRN Hypoglycemia Protocol Enoxaparin Sodium 40 mg 09/15/25 09:00 09/16/25 09:12 Enoxaparin 40 Mg/0.4 Ml Syringe SUB-Q 40 mg DAILY DAKOTA Administration Epinephrine HCl 0.3 mg 09/15/25 12:36 Epinephrine Hcl Inj 1 Mg/Ml Ampul IM ONCE PRN hypersensitivity reaction Ergocalciferol 1,250 mcg 09/15/25 12:35 09/15/25 13:13 Ergocalciferol (Vitamin D2) 1,250 Mcg (50,000 Units) Capsule PO 1,250 mcg Mena@0900 DAKOTA Administration Fish Oil 1 gm 09/16/25 09:00 09/16/25 09:11 [place] 3 Polyunsat Fatty Acids 1 Gm Cap PO 1 gm DAILY DAKOTA Administration Glucagon 1 mg 09/14/25 21:12 Glucagon For Inj 1 Mg Vial IM PRN PRN Hypoglycemia Protocol Glucose 15 gm 09/14/25 21:12 Glucose Oral Gel 15 Gm Of Glucse In 37.5 Gm Tube PO PRN PRN Hypoglycemia Protocol Dextrose 1,000 mls @ 100 mls/hr 09/14/25 21:12 Dextrose 5% 1,000 Ml IVPB PRN PRN Hypoglycemia Protocol Loratadine 10 mg 09/15/25 09:00 09/16/25 09:11 Loratadine 10 Mg Tablet PO 10 mg DAILY DAKOTA Administration Metoprolol Succinate 25 mg 09/15/25 09:00 09/16/25 09:11 Metoprolol Succinate Ext Rel 25 Mg Tabcr PO 25 mg DAILY DAKOTA Administration Multivitamins Therapeutic 1 tablet 09/16/25 09:00 09/16/25 09:11 Multivitamins Therapeutic Tab (*Bkc) PO 1 tablet DAILY DAKOTA Administration Ondansetron HCl 4 mg 09/14/25 21:08 Ondansetron Inj 4 Mg/2 Ml Vial IV PUSH Q4H PRN Nausea Pantoprazole Sodium 40 mg 09/15/25 12:35 09/16/25 09:11 Pantoprazole 40 Mg Tablet PO 40 mg QAM DAKOTA Administration Perflutren Lipid Microsphere 0 ml 09/14/25 20:59 Perflutren Lipid Microspheres 1.5 Ml Vial Diluted To 10 Ml Total Volume IV PUSH 09/17/25 20:59 ONCE PRN adequate visualization Protocol Trazodone HCl 50 mg 09/16/25 09:00 09/16/25 09:12 Trazodone Hcl 50 Mg Tablet PO Not Given DAILY DAKOTA Vitamin E 1,000 unit 09/16/25 09:00 09/16/25 09:11 Vitamin E 1,000 Unit Capsule PO 1,000 unit DAILY DAKOTA Administration Radiology Results: ITS Impressions Head CT 09/14/25 17:59 Impression: 1.No acute intracranial abnormality. Chest X-Ray 09/14/25 18:00 Impression: No acute cardiopulmonary abnormality. Head/Neck CTA 09/14/25 19:27 IMPRESSION: 1. No critical stenosis, aneurysm or occlusion identified. Brain MRI 09/15/25 14:30 IMPRESSION: 1. Probable scattered areas of chronic periventricular ischemic change. Other demyelinating etiologies however are not excluded. Six-month follow-up is recommended to assess Labs Labs: Laboratory Results - last 24 hr 09/16/25 07:15 WBC 7.1 RBC 4.18 L Hgb 12.3 Hct 36.8 L MCV 88.0 MCH 29.4 MCHC 33.4 RDW 12.7 Plt Count 281 MPV 8.5 Immature Gran % (Auto) 0.1 Neut % (Auto) 46.7 Lymph % (Auto) 38.0 [place] % (Auto) 9.2 H Eos % (Auto) 5.1 H Baso % (Auto) 0.9 Lymph # (Auto) 2.68 [place] # (Auto) 0.7 H Eos # (Auto) 0.4 H Baso # (Auto) 0.1 Abs Immat Gran (auto) 0.01 Absolute Neuts (auto) 3.3 Absolute Nucleated RBC 0.000 Nucleated RBC % 0.0 Sodium 138 Potassium 3.9 Chloride 106 Carbon Dioxide 28 Anion Gap 4 BUN 14 Creatinine 0.73 Estim Creat Clear Calc Not Reportable Estimated GFR > 60 Glucose 88 Calcium 9.0 Total Bilirubin 0.4 AST 28 ALT 18 Alkaline Phosphatase 64 Total Protein 7.0 Albumin 3.9 Quality VTE Prophylaxis VTE prophylaxis: pharmacologic ordered (Lovenox 40 mg subQ daily.)
[2025-09-16 13:42] LABS: Cholesterol 239 mg/dL (0-200); HDL Direct 54 mg/dL; Triglycerides 124 mg/dL (<150)
--- NOTE | 2025-09-16 16:28 | PM.CNCAR ---
Assessment and Plan Assessment and plan (1) Syncope: Qualifiers: Syncope type: vasovagal syncope Qualified Code(s): R55 - Syncope and collapse Code(s): R55 - Syncope and collapse Status: Acute Assessment and Plan: Probably vasovagal triggered by nausea. Advise to lie down when she feels dizzy or nausea to avoid passing out. Advise to keep well hydrated. Echo is normal. To complete workup, she would need event monitor. If she gets discharged home, have her call my office to place monitor and f/u with me in next 2 weeks. (2) Essential (primary) hypertension: Code(s): I10 - Essential (primary) hypertension Status: Acute Assessment and Plan: Stable. History of Present Illness History of Present Illness Consult date/time: 09/16/25 16:28 Reason For Visit: multiple syncopal episodes Narrative: 75 yr old woman admitted for syncope. She has a history of hypertension. at bedside. States she passed out twice minutes apart 3 days ago after feeling nausea. States she ate left over pizza and felt nausea afterwards and passed out. She regained consciousness then felt nauseated again and left to get a bucket and came back and found her unconscious again. She can walk a couple of blocks without any problems. Denies chest pain, sob, orthopnea, PND, edema, palpitations. Review of Systems Review of Systems: All systems reviewed & are unremarkable except as noted in HPI and below Constitutional: Constitutional: Reports as per HPI and Denies fever(s) Cardiovascular: Cardiovascular: Reports as per HPI, Denies chest pain and Denies irregular heart rhythm Respiratory: Respiratory: Reports as per HPI and Denies dyspnea Gastrointestinal: Gastrointestinal: Reports as per HPI, Denies abdominal pain and Reports nausea Genitourinary: Genitourinary: Reports as per HPI and Denies dysuria Musculoskeletal: Musculoskeletal: Reports as per HPI and Denies back pain Neurologic: Reports as per HPI, Denies dizziness and Reports syncope [facility] Past Medical History Medical History 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 Vitamin D deficiency Decreased hearing of both ears With audiologic evaluation to 03/2025 demonstrating normal hearing of the left ear and [id number] hearing loss in the right ear Temporomandibular joint disorder Age related osteoporosis DEXA scan 12/2023 Zoledronic acid yearly with 1st treatment 12/26/2023 Essential (primary) hypertension Hypercholesteremia GERD (gastroesophageal reflux disease) Allergic rhinitis Generalized anxiety disorder Insomnia Surgical History Surgical History History of colonoscopy (2013) Diverticulosis with internal hemorrhoids History of Mohs micrographic surgery for skin cancer 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 She she and her raised 2 sons. She briefly smoked in her late teens and early 20s. She drinks 1 glass a wine a month. 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 Code status: Full code Surrogate decision maker: Smoking status: Former smoker Alcohol intake: current Drinks per week: 1 Alcohol use details: occasionally Substance use: unknown Substance use type: does not use Do You Feel Safe in your Home?: Yes Lack of Transportation: No Lack of Food: Never True Current Housing: I Have Housing Concerned About Future Housing: No Difficulty Paying Gas/Electric Bills: No Difficulty Paying for Meds: No Currently Unemployed: No Education: High School Diploma/GED Difficulty w/ Childcare or Family Care: No Living arrangements: with family Occupation/Education: retired Gender identity (if verbalized by the patient): Female Sexual Orientation (if Verbalized by the Patient): Straight or Heterosexual Spiritual care concerns: No Meds Home Medications and Allergies Home Medications ?Medication ?Instructions ?Recorded ?Confirmed ?Type ergocalciferol (vitamin D2) 1,250 1,250 mcg PO WEEKLY 02/09/23 09/14/25 History mcg (50,000 unit) capsule multivitamin 1 tablet PO DAILY #90 tabs 08/18/23 09/14/25 Rx omega [id number]-hwb-[id number]-fish oil 1,000 mg 1 cap PO DAILY #60 caps 08/18/23 09/14/25 Rx (120 mg-180 mg) capsule (Fish Oil) epinephrine 0.3 mg/0.3 mL 0.3 mg (0.3 mL) IM ONCE PRN 08/03/24 09/14/25 Rx injection, auto-injector hypersensitivity reaction #2 ea vitamin E (dl, acetate) 450 mg 450 mg PO DAILY 09/17/24 09/14/25 History (1,000 unit) capsule trazodone 50 mg tablet 50 mg PO DAILY 12/13/24 09/14/25 History omeprazole magnesium 20 mg 20 mg PO DAILY 03/19/25 09/14/25 History capsule,delayed release metoprolol succinate 25 mg 25 mg PO DAILY #90 tabs 08/23/25 09/14/25 Rx tablet,extended release 24 hr aspirin 81 mg tablet,delayed 81 mg PO HS 09/14/25 09/14/25 History release (Adult Low Dose Aspirin) loratadine 10 mg tablet (Allergy 10 mg PO DAILY 09/15/25 09/15/25 History Relief (loratadine)) Allergies Allergy/AdvReac Type Severity Reaction Status Date / Time peanut Allergy Severe THROAT Verified 09/14/25 22:54 SWELLING celery AdvReac Mild Hives Verified 09/14/25 22:54 sesame seed AdvReac Mild Rash Verified 09/14/25 22:54 CLAMS AdvReac Mild Hives Uncoded 05/16/25 11:09 Vital Signs Vital Signs - 24 hr 09/15/25 20:00 09/15/25 20:00 09/15/25 20:11 Temperature 98.2 F Pulse Rate 64 64 Respiratory Rate 18 Blood Pressure 129/65 Pulse Oximetry 99 Oxygen Delivery Room Air 09/16/25 00:00 09/16/25 04:00 09/16/25 04:22 Temperature 97.7 F Pulse Rate 55 L 58 L 60 Respiratory Rate 16 Blood Pressure 153/73 H Pulse Oximetry 97 Oxygen Delivery 09/16/25 08:00 09/16/25 09:11 09/16/25 09:12 Temperature Pulse Rate 61 69 Respiratory Rate Blood Pressure Pulse Oximetry Oxygen Delivery Room Air 09/16/25 12:00 09/16/25 14:00 Temperature 98.3 F Pulse Rate 57 L 65 Respiratory Rate 18 Blood Pressure 127/77 Pulse Oximetry 99 Oxygen Delivery Exam Const: General: cooperative, healthy appearing and comfortable Resp: Auscultation: clear to auscultation bilaterally, no crackles, no rales, no rhonchi and no wheezes Cardio: Rate: regular rate Rhythm: regular rhythm Heart sounds: no murmurs Peripheral pulses: dorsalis pedis present GI: GI Palp: No abdominal tenderness and Yes Soft to palpation Neuro: General: oriented to person, oriented to place and oriented to time Extrem: Right lower extremity: no edema Left lower extremity: no edema Results Labs and Meds 09/16/25 07:15 09/16/25 07:15 Lab results: Cardiac Enzymes 09/16/25 Range/Units 07:15 AST 28 (14-36) U/L Lipids 09/16/25 Range/Units 07:15 Triglycerides 124 (<150) mg/dL Cholesterol 239 H (0-200) mg/dL CBC 09/16/25 Range/Units 07:15 WBC 7.1 (4.5-10.0) K/mm3 RBC 4.18 L (4.2-5.4) M/mm3 Hgb 12.3 (12.0-15.0) g/dL Hct 36.8 L (37.0-47.0) % Plt Count 281 (150-375) k/mm3 Lymph # (Auto) 2.68 (0.9-3.2) K/mm3 [place] # (Auto) 0.7 H (0.1-0.6) K/mm3 Eos # (Auto) 0.4 H (0-0.3) K/mm3 Baso # (Auto) 0.1 (0.0-0.1) K/mm3 Comprehensive Metabolic Panel 09/16/25 Range/Units 07:15 Sodium 138 (137-145) mmol/L Potassium 3.9 (3.4-5.0) mmol/L Chloride 106 (98-107) mmol/L Carbon Dioxide 28 (22-30) mmol/L BUN 14 (7-17) mg/dL Creatinine 0.73 (0.7-1.0) mg/dL Glucose 88 (65-110) mg/dL Calcium 9.0 (8.4-10.2) mg/dL AST 28 (14-36) U/L ALT 18 (6-35) U/L Alkaline Phosphatase 64 (38-126) U/L Total Protein 7.0 (6.3-8.2) g/dL Albumin 3.9 (3.5-5.1) g/dL Intake and Output 09/16/25 09/16/25 09/16/25 07:59 15:59 23:59 Intake Total 300 584 Balance 300 584 Intake: Oral 300 584 Other: # Unmeasured Voids 1 1
--- NOTE | 2025-09-16 17:45 | P.DS_ITS ---
DS: Admitting Diagnosis Discharge Date 09/16/2025 Admitting Diagnosis Syncope DS: Discharge Diagnosis Discharge Diagnosis (1) Syncope: Qualifiers: Syncope type: vasovagal syncope Qualified Code(s): R55 - Syncope and collapse Code(s): R55 - Syncope and collapse Status: Acute Assessment and Plan: * Most suspicious for vasovagal syncopal episodes * Orthostatic vitals unremarkable in ER * No major electrolyte abnormalities * H/o patent foramen ovale - could cause conduction issues * Head/Neck CTA: No critical stenosis, aneurysm or occlusion identified. * Chest XR: No acute cardiopulmonary abnormality. * Head CT: No acute intracranial abnormality. * Obtain Echo to assess cardiac structure/function * Cardiology consult pending as well * Brain MRI: Probable scattered areas of chronic periventricular ischemic change. Other demyelinating etiologies however are not excluded. Six-month follow-up is recommended to assess * EEG: abnormal EEG obtained during awake and drowsy states due to presence of focal sharp wave activity noted over both temporal areas Independently. * Neurology consult - appreciate further recommendations (2) Essential (primary) hypertension: Code(s): I10 - Essential (primary) hypertension Status: Acute Assessment and Plan: * Patient's blood pressure was reviewed on 09/15 * Blood pressure remains well controlled * Will continue current medications (3) PFO (patent foramen ovale): Code(s): Q21.12 - Patent foramen ovale Status: Acute Assessment and Plan: * Diagnosed 20 years prior, no imaging studies since * Could be source of conduction issues causing syncopal episode * Echo to assess cardiac structure/function (4) GERD (gastroesophageal reflux disease): Code(s): K21.9 - Gastro-esophageal reflux disease without esophagitis Status: Acute Assessment and Plan: * Continue omeprazole (5) Vitamin D deficiency: Code(s): E55.9 - Vitamin D deficiency, unspecified Status: Acute Assessment and Plan: * Continue Ergocalciferol DS: Summary Hospital Course Reason for hospitalization: Syncope Hospital Course: Per HPI: 75-year-old female with a past medical history of osteoporosis, patent foramen ovale, essential hypertension, GERD and anxiety who presented to the ER via EMS after having 2 syncopal episodes at home. She reports that her had been in the hospital recently for surgery. She was feeling tired and did not want a cook so they decided to eat some leftovers. She ate some chicken pizza that with about 5-day-old. About fdc through the 2nd slice of pizza as she started to feel nauseous and realize that pizza may not be good but still finished the 2nd slice. She then began feeling nauseous and went to the bathroom thinking that if she vomited that would be the better place to get sic k. But she began to feel weak and chilled with diaphoresis so she walked out into the [place] to sit in a chair. Her came and found her on the ground. She states that she could hear her calling her name but could not respond to him.. She was face down on the ground and was unconscious for ?a couple of minutes?. He helped her to the couch. She reported that she felt better with but was still nauseous and asked her to go get a bucket for to throw up in. When he returned to the living room she was again unconscious. She reports that she never did vomit. She denies having any diarrhea and her last normal bowel movement was this morning. Her denied witnessing any seizure-like activity or confusion after syncopal episodes. The patient has never had a history of prior syncopal episodes or seizures. She denies any chest pain, shortness and breath, lower GI symptoms, dysuria, loss of bowel or bladder function or lightheadedness with position changes. Orthostatics performed in the ER were normal. CBC CMP and troponin were all normal UA demonstrated mild pyuria without bacteriuria. Chest x-ray, noncontrast CT of the head and CT of the head and neck were all personally reviewed and confirmed to be normal by Radiology. EKG was personally reviewed and demonstrated normal sinus rhythm with a rate of 63. The patient had no observed arrhythmias per EMS or noted on telemetry in the ER. She reports that she was diagnosed with a PFO approximately 20 years ago. She has been asymptomatic from her PFO. She has not had any echocardiogram or stress test since her initial diagnosis. Hospital course: Echocardiogram was obtained, showed normal LV chamber dimension w/ 60-65 EF, G1DD, E/e' 11, mildly enlarged LA dimension, mild AVS/MVR, no pulm htn, trace pulm regurg. Head CT showed No acute intracranial abnormality. Chest XR showed No acute cardiopulmonary abnormality. Head CTA showed No critical stenosis, aneurysm or occlusion identified. Brain MRI showed Probable scattered areas of chronic periventricular ischemic change. Other demyelinating etiologies however are not excluded. Six-month follow-up is recommended to assess. Neurology was consulted and was in agreement that symptoms less likely related to seizure and more closely resembles vasovagal syncope. They would recommend a 30 day cardiac event monitor. EEG was also obtained per neurology which showed presence of focal sharp wave activity noted over both temporal areas. Cardiology was also consulted regarding syncope - also in agreement that syncope was likely triggered by nausea/vasovagal response. Would advise to lie down when she feels dizzy or nausea to avoid passing out. Advise to keep well hydrated. Cards also recommends a cardiac event monitor - they recommend giving the patient their office's number and calling in tomorrow (09/06) in order to be fitted for a cardiac event monitor. Pt is otherwise hemodynamically stable - vitals and blood work have remained stable and unremarkable throughout the visit. She has had no episodes of syncope and has no neurological deficits on exam. She feels ready for discharge and will follow up with her PCP and cardiology for an event monitor - plan for discharge at this time. Status at Discharge Functional status at discharge: independent ambulation Overall status at discharge: patient is back to baseline Time Spent with Patient Time attestation: Total time spent providing and/or coordinating discharge services: 25 Exam Narrative: Weight 65.1 kg BMI 29 Const: Other: No acute distress, well-developed well-nourished, appears stated age HENMT: Other: Mucous membranes are moist, no oral pharyngeal erythema, good dentition Eyes: Other: Pupils are equal and reactive, no scleral icterus, no conjunctival pallor, extraocular movements intact Neck: Other: No lymphadenopathy, no JVD, no bruits Resp: Other: Clear to auscultation bilaterally, no increased work of breathing Cardio: Other: Regular rate, regular rhythm, no murmurs Skin: Other: No jaundice, no pallor, normal temperature to touch Neuro: Other: Alert oriented x4, speech is clear and fluent, no facial asymmetry, cranial nerves 2-12 appear to be grossly intact, no localizing neurologic deficits noted Extrem: Other: Normal strength and tone of all extremities Psych: Other: Loquacious, pleasant, cooperative, intact judgment and insight DS: Data Data Completed and Pending Labs on day of discharge: Labs from last 24 hours 09/16/25 07:15 WBC 7.1 RBC 4.18 L Hgb 12.3 Hct 36.8 L MCV 88.0 MCH 29.4 MCHC 33.4 RDW 12.7 Plt Count 281 MPV 8.5 Immature Gran % (Auto) 0.1 Neut % (Auto) 46.7 Lymph % (Auto) 38.0 [place] % (Auto) 9.2 H Eos % (Auto) 5.1 H Baso % (Auto) 0.9 Lymph # (Auto) 2.68 [place] # (Auto) 0.7 H Eos # (Auto) 0.4 H Baso # (Auto) 0.1 Abs Immat Gran (auto) 0.01 Absolute Neuts (auto) 3.3 Absolute Nucleated RBC 0.000 Nucleated RBC % 0.0 Sodium 138 Potassium 3.9 Chloride 106 Carbon Dioxide 28 Anion Gap 4 BUN 14 Creatinine 0.73 Estim Creat Clear Calc Not Reportable Estimated GFR > 60 Glucose 88 Calcium 9.0 Total Bilirubin 0.4 AST 28 ALT 18 Alkaline Phosphatase 64 Total Protein 7.0 Albumin 3.9 Triglycerides 124 Cholesterol 239 H LDL Cholesterol Direct 128 HDL Direct 54 Discharge Plan Discharge Attending physician on discharge: Bird Archer Consulting providers: Isabela Mast; Jaya Hammond; Anthony Levy Discharging Clinician: Jaya Hammond Anticipated Discharge Date/Time: 09/16/25 17:39 Patient Disposition: Home Activity: no driving and as tolerated Diet: regular Discharge Instructions: Discharge disposition: Home Take medications as prescribed Monitor blood pressures Take caution while standing, rising, or moving Change positions slowly taking a break between each position change If you standing feel dizzy sit back down and take a break Encouraged to continue with yearly vaccinations Return to the emergency department if you develop sudden shortness of breath, chest pain, nausea, vomiting, upset stomach or intractable diarrhea Return to the emergency department if you develop fever greater than 101.5 Follow-up with the primary care physician within 1-2 weeks Follow up with Cardiology - call their office tomorrow to order picker/assembler a Holter cardiac event monitor - follow up with their office in 2 weeks after that. Thank you for choosing [facility] for your healthcare needs Patient Instructions: Antibiotic Form, Syncope (DC) Patient Language: Sinhala Stand Alone Forms: General Discharge Information Follow-up/Referrals: Anthony Levy DO [Physician, Cardiology] - 2 Weeks Praveen Almeida MD [Primary Care Provider, [facility]] - 1 Week Referral Note: Follow up in 1-2 weeks Discharge Medications: Continued multivitamin Tablet 1 tablet PO DAILY Qty: 90 0RF omega [id number] oil [Fish Oil] 1,000 mg (120 mg-180 mg) capsule 1 cap PO DAILY Qty: 60 0RF vitamin E (dl, acetate) 450 mg (1,000 unit) capsule 450 mg PO DAILY epinephrine 0.3 mg/0.3 mL auto-injector 0.3 mg IM ONCE PRN (Reason: hypersensitivity reaction) Qty: 2 0RF Rx Instructions: as a single dose; may repeat once omeprazole magnesium 20 mg capsule,delayed release(DR/EC) 20 mg PO DAILY trazodone 50 mg tablet 50 mg PO DAILY ergocalciferol (vitamin D2) 1,250 mcg (50,000 unit) capsule 1,250 mcg PO WEEKLY Patient Comments: takes on Tuesday aspirin [Adult Low Dose Aspirin] 81 mg tablet,delayed release (DR/EC) 81 mg PO HS Patient Comments: . loratadine [Allergy Relief (loratadine)] 10 mg tablet 10 mg PO DAILY metoprolol succinate 25 mg tablet extended release 24 hr 25 mg PO DAILY Qty: 90 1RF Other Ambulatory Orders: [place] cardiac event monitor (Routine) Timeframe: 2 Weeks Location: Determined by Patient Ordered By: Jaya Hammond Date of admission: 09/14/25 21:08 Primary Care Provider: Praveen Almeida Admitting Provider: Frances Anand Attending physician on admission: Frances Anand Condition: Stable Quality VTE Prophylaxis VTE prophylaxis: pharmacologic ordered (Lovenox 40 mg subQ daily.)
--- NOTE | 2025-09-18 13:56 | PC.NURSE ---
Pt called regarding holter monitor. Instructions to call dr. portillo office for set up.
== END 2025-09-16 18:30 | disposition home or self-care (01) ==
LOC: ANHED 19:48 → ANH3MED 09-15 06:52
PROVIDERS: Physician Assistant; Student in an Organized Health Care Education/Training Program; Admitting Provider Internal Medicine; Emergency Provider Physician Assistant; PCP Family Medicine; Visit Provider Family Medicine
DX: R55 Syncope and collapse (principal); Q21.12 Patent foramen ovale; I10 Essential (primary) hypertension; R94.01 Abnormal electroencephalogram [EEG]; E55.9 Vitamin D deficiency, unspecified; E78.00 Pure hypercholesterolemia, unspecified; M81.0 Age-related osteoporosis without current pathological fracture; K21.9 Gastro-esophageal reflux disease without esophagitis; F41.9 Anxiety disorder, unspecified; Z87.891 Personal history of nicotine dependence; Z79.899 Other long term (current) drug therapy
CPT/HCPCS: 36415; 70450; 70496; 70498; 70553; 71046; 80053; 80061; 81001; 83735; 84484; 85025; 85380; 85610; 85730; 87086; 93005; 93306; 95816; 96372; 96375; 99285; A9270; A9577; G0378; J1650; J7030; Q9967